=== PATIENT | male | born 1960 | race Caucasian/White ===

== ENCOUNTER 2019-07-26 14:07 | Inpatient (IN) ==
[2019-07-26] MEDS ORDERED: FUROSEMIDE 40 MG/4 ML VIAL IV STA (15:20)
[2019-07-26 15:29] LABS: Basophils # 0.1 10*3/uL (0.0-0.2); Basophils % 0.6 % (0.0-0.8); Eosinophils # 0.4 10*3/uL (0.0-0.87); Eosinophils % 2.9 % (0.00-10.9); Hematocrit 41.7 VOL% (42.0-52.0); Hemoglobin 13.2 GM/DL (14.0-18.0); Immature Granulocytes % 0.3 %; Immature Granulocytes Absolute 0.04 #; Lymphocytes # 2.2 10*3/uL (1.4-4.0); Lymphocytes % 18.6 % (21.2-54.2); Mean Corpuscular HGB Conc 31.7 GM/DL (32-36); Mean Corpuscular Volume 90.3 FL (87-102); Mean Platelet Volume 11.3 FL (9.6-12.0); Monocytes % 7.3 % (1.7-12.7); Neutrophils % 70.3 % (38.7-73.9); Platelet Count 181 T/CUMM (130-400); Red Blood Count 4.62 MC/CUMM (3.8-5.5); Red Cell Distribution Width 14.5 % (9.3-17.3)
[2019-07-26 15:37] LABS: PT Patient Result 10.6 SECS (9.6-12.2); Partial Thromboplastin Time 26.6 SECS (20.8-36.0)
[2019-07-26 15:52] LABS: Albumin 2.8 G/DL (3.4-5.0); Bilirubin,Total 0.4 MG/DL (0.2-1.0); Calcium 8.6 MG/DL (8.5-10.1); Osmolality,Calculated 302.7 MOS/KG (273-304); Total Protein 5.7 G/DL (6.4-8.3)
[2019-07-26] MEDS ORDERED: ACETAMINOPHEN 325 MG TABLET PO PRN (16:02)
[2019-07-26] MEDS ORDERED: ALBUTEROL 2.5 MG/3 ML NEB RESP TX PRN (16:02)
[2019-07-26] MEDS ORDERED: GLUCAGON 1 MG VIAL IM PRN (16:02)
[2019-07-26] MEDS ORDERED: ONDANSETRON 4 MG/2 ML VIAL IV PRN (16:02)
[2019-07-26] MEDS ORDERED: DEXTROSE 10% 250 ML BAG IV PRN (16:02)
[2019-07-26] MEDS ORDERED: AZITHROMYCIN INJ 500 MG in SODIUM CHLORIDE 0.9% 250 ML IV SCH (16:30)
[2019-07-26 17:24] LABS: Apearance,Urine CLEAR (Clear); Bilirubin,Urine Negative (Negative); Blood, Urine Small mg/dL (Negative); Glucose,Urine (UA) >=500 mg/dL (Negative); Ketones,Urine Negative (Negative); Nitrite,Urine Negative (Negative); Protein,Urine >=500 MG/DL; RBC,Urine 3 /HPF (0-4); Urine Color Straw (Yellow); Urine Specific Gravity 1.009 (1.001-1.035); Urine Urobilinogen < 2.0 EU/DL (0.2-1.0); WBC,Urine <1 /HPF (0-6)
[2019-07-26] MEDS: INSULIN REGULAR 100 UNIT/ML SUBCUT SCH ×2 (17:26→21:14)
[2019-07-26] MEDS ORDERED: cefTRIAXone 1,000 MG in SYRINGE 1 EACH IV SCH (18:00)
[2019-07-26] MEDS: ALBUTEROL/IPRATROPIUM 3 ML NEB RESP TX SCH (19:24)
[2019-07-26] MEDS ORDERED: INFLUENZA VIRUS VACCINE 0.5 ML SYRINGE IM ONE (19:25)
[2019-07-26] MEDS ORDERED: PNEUMOCOCCAL VACCINE (23 VALENT) 0.5 ML VIAL IM ONE (19:28)
[2019-07-26] MEDS ORDERED: MAGNESIUM SULF RIDER 4 GM in PREMIX 1 EACH IV PRN (19:31)
[2019-07-26] MEDS ORDERED: MAGNESIUM SULF RIDER 2 GM in PREMIX 1 EACH IV PRN (19:31)
[2019-07-26] MEDS ORDERED: LEVOFLOXACIN INJ 750 MG in PREMIX 1 EACH IV STA (19:31)
[2019-07-26] MEDS ORDERED: ATORVASTATIN 20 MG TABLET PO SCH (21:00)
[2019-07-26] MEDS ORDERED: ENOXAPARIN 40 MG/0.4 ML SYRINGE SUBCUT SCH (21:00)
[2019-07-26] MEDS ORDERED: OMEGA 3 ACID ETHYL ESTERS 1 GM CAPSULE PO SCH (21:00)
[2019-07-26] MEDS ORDERED: APIXABAN 2.5 MG TABLET PO SCH (21:00)
[2019-07-26] MEDS: DILTIAZEM CD 240 MG CAPSULE PO SCH (21:11)
[2019-07-26] MEDS: LEVOTHYROXINE 50 MCG TABLET PO SCH (21:12)
[2019-07-26] MEDS: tiZANidine 4 MG TABLET PO SCH (21:13)
[2019-07-26] MEDS: BENZONATATE 100 MG CAPSULE PO SCH ×2 (21:13→21:14)
[2019-07-26] MEDS: INSULIN GLARGINE 100 UNIT/ML SUBCUT SCH (21:13)
[2019-07-26] MEDS: INSULIN LISPRO 100 UNIT/ML SUBCUT SCH (21:14)
[2019-07-26] MEDS: CITALOPRAM 20 MG TABLET PO SCH (21:16)
[2019-07-26] MEDS: ALPRAZolam 0.25 MG TABLET PO SCH (21:25)
[2019-07-27] MEDS: ALBUTEROL/IPRATROPIUM 3 ML NEB RESP TX SCH ×4 (00:13→20:00)
[2019-07-27 07:17] LABS: Basophils # 0.1 10*3/uL (0.0-0.2); Basophils % 0.6 % (0.0-0.8); Eosinophils # 0.3 10*3/uL (0.0-0.87); Eosinophils % 3.1 % (0.00-10.9); Hematocrit 40.9 VOL% (42.0-52.0); Immature Granulocytes % 0.3 %; Immature Granulocytes Absolute 0.03 #; Lymphocytes % 21.9 % (21.2-54.2); Mean Corpuscular HGB Conc 31.8 GM/DL (32-36); Mean Corpuscular Volume 90.3 FL (87-102); Mean Platelet Volume 11.2 FL (9.6-12.0); Monocytes % 7.4 % (1.7-12.7); Neutrophils % 66.7 % (38.7-73.9); Platelet Count 162 T/CUMM (130-400); Red Blood Count 4.53 MC/CUMM (3.8-5.5); Red Cell Distribution Width 14.3 % (9.3-17.3); White Blood Count 8.9 T/CUMM (4-12)
[2019-07-27 07:51] LABS: Albumin 2.6 G/DL (3.4-5.0); Bilirubin,Total 0.9 MG/DL (0.2-1.0); Calcium 8.9 MG/DL (8.5-10.1); Osmolality,Calculated 297.8 MOS/KG (273-304); Risk Ratio 5.59; Total Protein 6.1 G/DL (6.4-8.3); VLDL CHOLESTEROL 39.4 MG/DL
[2019-07-27] MEDS: BENZONATATE 100 MG CAPSULE PO SCH ×3 (09:13→20:54)
[2019-07-27] MEDS: INSULIN LISPRO 100 UNIT/ML SUBCUT SCH ×3 (09:14→16:50)
[2019-07-27] MEDS: FUROSEMIDE 40 MG/4 ML VIAL IV SCH ×2 (09:15→16:50)
[2019-07-27] MEDS: INSULIN REGULAR 100 UNIT/ML SUBCUT SCH ×4 (09:15→20:52)
[2019-07-27] MEDS: APIXABAN 2.5 MG TABLET PO SCH ×2 (12:59→20:54)
[2019-07-27] MEDS: ASPIRIN EC 81 MG TABLET PO SCH (12:59)
[2019-07-27] MEDS: cefTRIAXone 2,000 MG in SYRINGE 1 EACH IV SCH (16:49)
[2019-07-27] MEDS: INSULIN GLARGINE 100 UNIT/ML SUBCUT SCH (20:51)
[2019-07-27] MEDS: ALPRAZolam 0.25 MG TABLET PO SCH (20:52)
[2019-07-27] MEDS: OMEGA 3 ACID ETHYL ESTERS 1 GM CAPSULE PO SCH (20:53)
[2019-07-27] MEDS: CITALOPRAM 20 MG TABLET PO SCH (20:53)
[2019-07-27] MEDS: DOXYCYCLINE HYCLATE 100 MG CAPSULE PO SCH (20:53)
[2019-07-27] MEDS: LEVOTHYROXINE 50 MCG TABLET PO SCH (20:53)
[2019-07-27] MEDS: ATORVASTATIN 40 MG TABLET PO SCH (20:54)
[2019-07-27] MEDS: DILTIAZEM CD 240 MG CAPSULE PO SCH (20:54)
[2019-07-27] MEDS: tiZANidine 4 MG TABLET PO SCH (20:56)
[2019-07-28] MEDS: ALBUTEROL/IPRATROPIUM 3 ML NEB RESP TX SCH ×4 (08:37→19:21)
[2019-07-28] MEDS: INSULIN REGULAR 100 UNIT/ML SUBCUT SCH ×4 (09:39→21:15)
[2019-07-28] MEDS: INSULIN LISPRO 100 UNIT/ML SUBCUT SCH ×3 (09:39→16:50)
[2019-07-28] MEDS: DOXYCYCLINE HYCLATE 100 MG CAPSULE PO SCH ×2 (09:40→21:14)
[2019-07-28] MEDS: OMEGA 3 ACID ETHYL ESTERS 1 GM CAPSULE PO SCH ×2 (09:40→21:14)
[2019-07-28] MEDS: APIXABAN 2.5 MG TABLET PO SCH ×2 (09:40→21:13)
[2019-07-28] MEDS: BENZONATATE 100 MG CAPSULE PO SCH ×3 (09:40→21:13)
[2019-07-28] MEDS: FUROSEMIDE 40 MG/4 ML VIAL IV SCH ×2 (09:40→17:16)
[2019-07-28] MEDS: ASPIRIN EC 81 MG TABLET PO SCH (09:40)
[2019-07-28] MEDS: cefTRIAXone 2,000 MG in SYRINGE 1 EACH IV SCH (14:36)
[2019-07-28] MEDS: LEVOTHYROXINE 50 MCG TABLET PO SCH (21:14)
[2019-07-28] MEDS: ATORVASTATIN 40 MG TABLET PO SCH (21:14)
[2019-07-28] MEDS: tiZANidine 4 MG TABLET PO SCH (21:14)
[2019-07-28] MEDS: CITALOPRAM 20 MG TABLET PO SCH (21:15)
[2019-07-28] MEDS: DILTIAZEM CD 240 MG CAPSULE PO SCH (21:15)
[2019-07-28] MEDS: ALPRAZolam 0.25 MG TABLET PO SCH (21:16)
[2019-07-28] MEDS: INSULIN GLARGINE 100 UNIT/ML SUBCUT SCH (21:16)
[2019-07-29] MEDS: ALBUTEROL/IPRATROPIUM 3 ML NEB RESP TX SCH ×2 (00:24→08:06)
[2019-07-29 05:04] LABS: Basophils % 0.4 % (0.0-0.8); Eosinophils # 0.3 10*3/uL (0.0-0.87); Eosinophils % 3.1 % (0.00-10.9); Hematocrit 40.1 VOL% (42.0-52.0); Hemoglobin 12.7 GM/DL (14.0-18.0); Immature Granulocytes % 0.3 %; Immature Granulocytes Absolute 0.03 #; Lymphocytes # 1.9 10*3/uL (1.4-4.0); Lymphocytes % 20.3 % (21.2-54.2); Mean Corpuscular HGB Conc 31.7 GM/DL (32-36); Mean Corpuscular Volume 90.7 FL (87-102); Mean Platelet Volume 11.4 FL (9.6-12.0); Monocytes % 8.4 % (1.7-12.7); Neutrophils % 67.5 % (38.7-73.9); Platelet Count 149 T/CUMM (130-400); Red Blood Count 4.42 MC/CUMM (3.8-5.5); Red Cell Distribution Width 14.5 % (9.3-17.3); White Blood Count 9.4 T/CUMM (4-12)
[2019-07-29 05:33] LABS: Calcium 8.7 MG/DL (8.5-10.1); Osmolality,Calculated 293.4 MOS/KG (273-304)
[2019-07-29] MEDS: INSULIN REGULAR 100 UNIT/ML SUBCUT SCH ×2 (08:25→13:00)
[2019-07-29] MEDS: INSULIN LISPRO 100 UNIT/ML SUBCUT SCH ×2 (08:26→13:00)
[2019-07-29] MEDS: FUROSEMIDE 40 MG/4 ML VIAL IV SCH (09:33)
[2019-07-29] MEDS: ASPIRIN EC 81 MG TABLET PO SCH (09:34)
[2019-07-29] MEDS: BENZONATATE 100 MG CAPSULE PO SCH ×2 (09:34→15:20)
[2019-07-29] MEDS: DOXYCYCLINE HYCLATE 100 MG CAPSULE PO SCH (09:34)
[2019-07-29] MEDS: OMEGA 3 ACID ETHYL ESTERS 1 GM CAPSULE PO SCH (09:34)
[2019-07-29] MEDS: APIXABAN 2.5 MG TABLET PO SCH (10:00)
[2019-07-29 14:05] VITALS: BP 121/59
[2019-07-29] MEDS ORDERED: CEFUROXIME 500 MG TABLET PO SCH (21:00)
== END 2019-07-29 15:22 | disposition home or self-care (01) | DRG 291 ==
LOC: N.ED 14:07 → N.EDINP 16:02 → SUATTDRO 16:02 → N.5E 17:36
PROVIDERS: ADMIT Internal Medicine; ATTEND Hospitalist

== ENCOUNTER 2019-10-30 16:38 | Inpatient (IN) ==
[2019-10-30] MEDS ORDERED: ALBUTEROL/IPRATROPIUM 3 ML NEB RESP TX STA (17:48)
[2019-10-30 18:06] LABS: Basophils % 0.4 % (0.0-0.8); Eosinophils # 0.3 10*3/uL (0.0-0.87); Eosinophils % 3.9 % (0.00-10.9); Hematocrit 33.9 VOL% (42.0-52.0); Immature Granulocytes % 0.1 %; Immature Granulocytes Absolute 0.01 #; Lymphocytes # 1.6 10*3/uL (1.4-4.0); Lymphocytes % 22.1 % (21.2-54.2); Mean Corpuscular HGB Conc 29.5 GM/DL (32-36); Mean Corpuscular Volume 90.9 FL (87-102); Mean Platelet Volume 11.3 FL (9.6-12.0); Monocytes % 8.4 % (1.7-12.7); Neutrophils % 65.1 % (38.7-73.9); Platelet Count 180 T/CUMM (130-400); Red Blood Count 3.73 MC/CUMM (3.8-5.5); White Blood Count 7.1 T/CUMM (4-12)
[2019-10-30 18:11] LABS: Calcium 8.5 MG/DL (8.5-10.1); Osmolality,Calculated 294.1 MOS/KG (273-304)
[2019-10-30 18:14] LABS: INR 1.1; PT Patient Result 11.4 SECS (9.6-12.2)
[2019-10-30] MEDS ORDERED: ALBUTEROL NEB SOLN 5 MG/ML 20 ML/BOTTLE CONT NEB STA (18:43)
[2019-10-30] MEDS ORDERED: FUROSEMIDE 40 MG/4 ML VIAL IV STA (18:43)
[2019-10-30] MEDS ORDERED: methylPREDNISolone SOD SUC 125 MG/2 ML VIAL IV STA (18:43)
[2019-10-30 19:06] LABS: Apearance,Urine CLEAR (Clear); Bilirubin,Urine Negative (Negative); Blood, Urine Negative (Negative); Glucose,Urine (UA) 50 mg/dL (Negative); Ketones,Urine Negative (Negative); Mucus,Urine Occasional /LPF (Occasional); Nitrite,Urine Negative (Negative); Protein,Urine 100 MG/DL; RBC,Urine 2 /HPF (0-4); Urine Color Yellow (Yellow); Urine Specific Gravity 1.012 (1.001-1.035); Urine Urobilinogen < 2.0 EU/DL (0.2-1.0)
[2019-10-30] MEDS ORDERED: hydrALAZINE 20 MG/1 ML VIAL IV PRN (21:16)
[2019-10-30] MEDS ORDERED: LOSARTAN 50 MG TABLET PO SCH (21:16)
[2019-10-30] MEDS ORDERED: ACETAMINOPHEN 325 MG TABLET PO PRN (21:16)
[2019-10-30] MEDS ORDERED: ALBUTEROL 2.5 MG/3 ML NEB RESP TX PRN (21:16)
[2019-10-30] MEDS ORDERED: DEXTROSE 50% 25 GM/50 ML SYRINGE IV PRN (21:16)
[2019-10-30] MEDS ORDERED: GLUCAGON 1 MG VIAL IM PRN (21:16)
[2019-10-30] MEDS ORDERED: POTASSIUM CHLORIDE 20 MEQ TABLET PO PRN (21:16)
[2019-10-30] MEDS ORDERED: NITROGLYCERIN SL 0.4 MG TABLET SL PRN (21:16)
[2019-10-30] MEDS: tiZANidine 4 MG TABLET PO SCH (22:12)
[2019-10-30] MEDS: ENOXAPARIN 40 MG/0.4 ML SYRINGE SUBCUT SCH (22:13)
[2019-10-30] MEDS: INSULIN LISPRO 100 UNIT/ML SUBCUT SCH ×2 (22:15→22:16)
[2019-10-30] MEDS: LEVOFLOXACIN INJ 750 MG in PREMIX 1 EACH IV SCH (22:16)
[2019-10-30] MEDS: INSULIN GLARGINE 100 UNIT/ML SUBCUT SCH (22:16)
[2019-10-30] MEDS: VANCOMYCIN INJ 2,000 MG in SODIUM CHLORIDE 0.9% 500 ML IV SCH (22:25)
[2019-10-31] MEDS: ALBUTEROL/IPRATROPIUM 3 ML NEB RESP TX SCH ×4 (01:00→19:29)
[2019-10-31] MEDS: PIPERACILLIN/TAZOBACTAM 3,375 MG in SODIUM CHLORIDE 0.9% 100 ML IV SCH ×3 (02:02→17:53)
[2019-10-31 02:21] LABS: ABG Base Excess -2.7 MMOL/L (-2.5-2.5); ABG HCO3 22.2 MMOL/L (20-26); ABG Oxygen Saturation 96.3 % (95-100); ABG PCO2 52.3 MM HG (35-48); ABG PO2 86.6 MM HG (80-95); ABG TCO2 22.6 MMOL/L (23-27); Allen Test Positive
[2019-10-31] MEDS: LEVOTHYROXINE 50 MCG TABLET PO SCH (06:16)
[2019-10-31 06:52] LABS: Calcium 8.6 MG/DL (8.5-10.1); Osmolality,Calculated 294.7 MOS/KG (273-304); Thyroid Stimulating Hormone 3.33 uIU/ml (0.358-3.74)
[2019-10-31 07:10] LABS: Basophils % 0.1 % (0.0-0.8); Eosinophils % 0.1 % (0.00-10.9); Hematocrit 33.5 VOL% (42.0-52.0); Hemoglobin 9.9 GM/DL (14.0-18.0); Immature Granulocytes % 0.3 %; Immature Granulocytes Absolute 0.02 #; Lymphocytes # 0.3 10*3/uL (1.4-4.0); Mean Corpuscular HGB Conc 29.6 GM/DL (32-36); Mean Platelet Volume 12.1 FL (9.6-12.0); Monocytes % 0.5 % (1.7-12.7); Platelet Count 174 T/CUMM (130-400); Red Blood Count 3.64 MC/CUMM (3.8-5.5); White Blood Count 7.7 T/CUMM (4-12)
[2019-10-31 07:22] LABS: Hypochromasia 1+; Lymphocytes 2 % (20-55); Ovalocytes Slight; Platelet Estimate Adequate; Segmented Neutrophils 98 % (50-85); Total Cells Counted 100
[2019-10-31] MEDS ORDERED: DILTIAZEM CD 240 MG CAPSULE PO SCH (09:00)
[2019-10-31] MEDS ORDERED: ATORVASTATIN 40 MG TABLET PO SCH (09:00)
[2019-10-31] MEDS: INSULIN LISPRO 100 UNIT/ML SUBCUT SCH ×8 (09:15→21:36)
[2019-10-31] MEDS: FUROSEMIDE 40 MG/4 ML VIAL IV SCH ×2 (09:16→17:52)
[2019-10-31] MEDS: ASPIRIN EC 81 MG TABLET PO SCH (09:17)
[2019-10-31] MEDS: CITALOPRAM 20 MG TABLET PO SCH (09:17)
[2019-10-31] MEDS: hydrALAZINE 25 MG TABLET PO SCH ×3 (09:17→17:51)
[2019-10-31] MEDS: GABAPENTIN 300 MG CAPSULE PO SCH ×3 (09:17→17:51)
[2019-10-31] MEDS: VANCOMYCIN INJ 2,000 MG in SODIUM CHLORIDE 0.9% 500 ML IV SCH (09:22)
[2019-10-31] MEDS: ISOSORBIDE DINITRATE 20 MG TABLET PO SCH ×2 (17:52→21:36)
[2019-10-31] MEDS: INSULIN GLARGINE 100 UNIT/ML SUBCUT SCH (21:34)
[2019-10-31] MEDS: LEVOFLOXACIN INJ 750 MG in PREMIX 1 EACH IV SCH (21:36)
[2019-10-31] MEDS: tiZANidine 4 MG TABLET PO SCH (21:36)
[2019-11-01] MEDS: ALBUTEROL/IPRATROPIUM 3 ML NEB RESP TX SCH ×4 (00:29→20:14)
[2019-11-01] MEDS: PIPERACILLIN/TAZOBACTAM 3,375 MG in SODIUM CHLORIDE 0.9% 100 ML IV SCH (02:58)
[2019-11-01] MEDS: LEVOTHYROXINE 50 MCG TABLET PO SCH (05:40)
[2019-11-01 07:25] LABS: Basophils % 0.2 % (0.0-0.8); Hematocrit 31.6 VOL% (42.0-52.0); Hemoglobin 9.3 GM/DL (14.0-18.0); Immature Granulocytes % 0.4 %; Immature Granulocytes Absolute 0.04 #; Lymphocytes # 1.1 10*3/uL (1.4-4.0); Lymphocytes % 9.8 % (21.2-54.2); Mean Corpuscular HGB Conc 29.4 GM/DL (32-36); Mean Corpuscular Volume 91.1 FL (87-102); Mean Platelet Volume 11.5 FL (9.6-12.0); Monocytes % 8.8 % (1.7-12.7); Neutrophils % 80.8 % (38.7-73.9); Platelet Count 201 T/CUMM (130-400); Red Blood Count 3.47 MC/CUMM (3.8-5.5); Red Cell Distribution Width 16.2 % (9.3-17.3); White Blood Count 10.8 T/CUMM (4-12)
[2019-11-01 07:29] LABS: Calcium 8.3 MG/DL (8.5-10.1); Osmolality,Calculated 298.4 MOS/KG (273-304)
[2019-11-01] MEDS: INSULIN LISPRO 100 UNIT/ML SUBCUT SCH ×8 (08:00→22:12)
[2019-11-01] MEDS: hydrALAZINE 25 MG TABLET PO SCH ×3 (09:00→16:44)
[2019-11-01] MEDS ORDERED: DILTIAZEM CD 120 MG CAPSULE PO SCH (09:00)
[2019-11-01] MEDS: GABAPENTIN 300 MG CAPSULE PO SCH ×3 (09:00→16:44)
[2019-11-01] MEDS: ISOSORBIDE DINITRATE 20 MG TABLET PO SCH ×3 (09:00→22:05)
[2019-11-01] MEDS: ASPIRIN EC 81 MG TABLET PO SCH (09:00)
[2019-11-01] MEDS: FUROSEMIDE 40 MG/4 ML VIAL IV SCH (09:44)
[2019-11-01] MEDS ORDERED: LIDOCAINE 1% 20 ML VIAL ONE (11:16)
[2019-11-01] MEDS ORDERED: BUPIVACAINE MPF 0.25% 30 ML VIAL ONE (11:23)
[2019-11-01] MEDS ORDERED: COLLAGENASE OINT 30 GM TUBE TOP ONE (12:17)
[2019-11-01] MEDS: CITALOPRAM 20 MG TABLET PO SCH (14:21)
[2019-11-01] MEDS: VANCOMYCIN INJ 1,750 MG in SODIUM CHLORIDE 0.9% 500 ML IV SCH (14:24)
[2019-11-01] MEDS: MORPHINE 4 MG/1 ML VIAL IV PRN (16:44)
[2019-11-01] MEDS: LEVOFLOXACIN INJ 750 MG in PREMIX 1 EACH IV SCH (22:04)
[2019-11-01] MEDS: ATORVASTATIN 40 MG TABLET PO SCH (22:04)
[2019-11-01] MEDS: carvediloL 3.125 MG TABLET PO SCH (22:05)
[2019-11-01] MEDS: tiZANidine 4 MG TABLET PO SCH (22:05)
[2019-11-01] MEDS: INSULIN GLARGINE 100 UNIT/ML SUBCUT SCH (22:11)
[2019-11-02] MEDS: ALBUTEROL/IPRATROPIUM 3 ML NEB RESP TX SCH ×4 (02:33→19:15)
[2019-11-02 05:42] LABS: Calcium 8.3 MG/DL (8.5-10.1)
[2019-11-02 06:25] LABS: Basophils % 0.5 % (0.0-0.8); Eosinophils # 0.3 10*3/uL (0.0-0.87); Eosinophils % 3.2 % (0.00-10.9); Hematocrit 32.2 VOL% (42.0-52.0); Hemoglobin 9.4 GM/DL (14.0-18.0); Immature Granulocytes % 0.3 %; Immature Granulocytes Absolute 0.02 #; Lymphocytes # 1.7 10*3/uL (1.4-4.0); Lymphocytes % 21.6 % (21.2-54.2); Mean Corpuscular HGB Conc 29.2 GM/DL (32-36); Mean Corpuscular Volume 93.1 FL (87-102); Mean Platelet Volume 11.4 FL (9.6-12.0); Monocytes % 9.1 % (1.7-12.7); Neutrophils % 65.3 % (38.7-73.9); Platelet Count 171 T/CUMM (130-400); Red Blood Count 3.46 MC/CUMM (3.8-5.5); Red Cell Distribution Width 16.5 % (9.3-17.3); White Blood Count 7.9 T/CUMM (4-12)
[2019-11-02 06:31] LABS: Platelet Estimate Normal
[2019-11-02 06:32] LABS: Anisocytosis 1+
[2019-11-02] MEDS: LEVOTHYROXINE 50 MCG TABLET PO SCH (06:41)
[2019-11-02] MEDS: INSULIN LISPRO 100 UNIT/ML SUBCUT SCH ×8 (07:30→21:53)
[2019-11-02] MEDS: carvediloL 3.125 MG TABLET PO SCH ×2 (08:38→21:52)
[2019-11-02] MEDS: CITALOPRAM 20 MG TABLET PO SCH (08:38)
[2019-11-02] MEDS: hydrALAZINE 25 MG TABLET PO SCH ×3 (08:38→17:00)
[2019-11-02] MEDS: ASPIRIN EC 81 MG TABLET PO SCH (08:38)
[2019-11-02] MEDS: GABAPENTIN 300 MG CAPSULE PO SCH ×3 (08:38→17:00)
[2019-11-02] MEDS: ISOSORBIDE DINITRATE 20 MG TABLET PO SCH ×3 (08:38→21:54)
[2019-11-02] MEDS: MORPHINE 4 MG/1 ML VIAL IV PRN ×2 (09:14→21:58)
[2019-11-02] MEDS: COLLAGENASE OINT 30 GM TUBE TOP SCH (15:30)
[2019-11-02] MEDS: SODIUM HYPOCHLORITE 0.25% IRRIG 473 ML BOTTLE TOP SCH (15:30)
[2019-11-02] MEDS: VANCOMYCIN INJ 1,750 MG in SODIUM CHLORIDE 0.9% 500 ML IV SCH (16:59)
[2019-11-02] MEDS: INSULIN GLARGINE 100 UNIT/ML SUBCUT SCH (21:53)
[2019-11-02] MEDS: tiZANidine 4 MG TABLET PO SCH (21:54)
[2019-11-02] MEDS: ATORVASTATIN 40 MG TABLET PO SCH (21:54)
[2019-11-02] MEDS: LEVOFLOXACIN INJ 750 MG in PREMIX 1 EACH IV SCH (21:55)
[2019-11-03] MEDS: ALBUTEROL/IPRATROPIUM 3 ML NEB RESP TX SCH ×4 (00:12→20:29)
[2019-11-03 05:26] LABS: Basophils % 0.4 % (0.0-0.8); Eosinophils # 0.4 10*3/uL (0.0-0.87); Eosinophils % 5.8 % (0.00-10.9); Hematocrit 32.2 VOL% (42.0-52.0); Immature Granulocytes % 0.1 %; Immature Granulocytes Absolute 0.01 #; Lymphocytes # 1.8 10*3/uL (1.4-4.0); Lymphocytes % 24.3 % (21.2-54.2); Mean Corpuscular HGB Conc 28.9 GM/DL (32-36); Mean Corpuscular Volume 92.8 FL (87-102); Mean Platelet Volume 11.6 FL (9.6-12.0); Monocytes % 10.6 % (1.7-12.7); Neutrophils % 58.8 % (38.7-73.9); Platelet Count 169 T/CUMM (130-400); Red Blood Count 3.47 MC/CUMM (3.8-5.5); Red Cell Distribution Width 16.3 % (9.3-17.3); White Blood Count 7.5 T/CUMM (4-12)
[2019-11-03] MEDS: LEVOTHYROXINE 50 MCG TABLET PO SCH (05:46)
[2019-11-03 05:53] LABS: Hemoglobin 9.4 GM/DL (14.0-18.0)
[2019-11-03 05:55] LABS: Calcium 8.4 MG/DL (8.5-10.1); Osmolality,Calculated 301.8 MOS/KG (273-304)
[2019-11-03 07:53] LABS: Anisocytosis 1+; Hypochromasia 2+; Platelet Estimate Adequate; Polychromasia Slight
[2019-11-03] MEDS: INSULIN LISPRO 100 UNIT/ML SUBCUT SCH ×8 (08:01→21:33)
[2019-11-03] MEDS: CITALOPRAM 20 MG TABLET PO SCH (08:56)
[2019-11-03] MEDS: ISOSORBIDE DINITRATE 20 MG TABLET PO SCH ×3 (08:56→21:27)
[2019-11-03] MEDS: SODIUM HYPOCHLORITE 0.25% IRRIG 473 ML BOTTLE TOP SCH (08:56)
[2019-11-03] MEDS: hydrALAZINE 25 MG TABLET PO SCH ×3 (08:56→17:26)
[2019-11-03] MEDS: ASPIRIN EC 81 MG TABLET PO SCH (08:56)
[2019-11-03] MEDS: carvediloL 3.125 MG TABLET PO SCH ×2 (08:56→21:27)
[2019-11-03] MEDS: COLLAGENASE OINT 30 GM TUBE TOP SCH (08:57)
[2019-11-03] MEDS: GABAPENTIN 300 MG CAPSULE PO SCH ×3 (09:00→17:26)
[2019-11-03] MEDS: VANCOMYCIN INJ 1,750 MG in SODIUM CHLORIDE 0.9% 500 ML IV SCH (14:00)
[2019-11-03] MEDS: MORPHINE 4 MG/1 ML VIAL IV PRN (17:25)
[2019-11-03] MEDS: ATORVASTATIN 40 MG TABLET PO SCH (21:27)
[2019-11-03] MEDS: tiZANidine 4 MG TABLET PO SCH (21:27)
[2019-11-03] MEDS: INSULIN GLARGINE 100 UNIT/ML SUBCUT SCH (21:27)
[2019-11-03] MEDS: LEVOFLOXACIN INJ 750 MG in PREMIX 1 EACH IV SCH (21:28)
[2019-11-04] MEDS: ALBUTEROL/IPRATROPIUM 3 ML NEB RESP TX SCH ×4 (00:27→20:27)
[2019-11-04] MEDS: LEVOTHYROXINE 50 MCG TABLET PO SCH (06:20)
[2019-11-04] MEDS: INSULIN LISPRO 100 UNIT/ML SUBCUT SCH ×8 (08:08→22:33)
[2019-11-04] MEDS ORDERED: hydrALAZINE 10 MG TABLET ONE (08:52)
[2019-11-04] MEDS: GABAPENTIN 300 MG CAPSULE PO SCH ×3 (09:18→17:36)
[2019-11-04] MEDS: ISOSORBIDE DINITRATE 20 MG TABLET PO SCH ×3 (09:18→22:33)
[2019-11-04] MEDS: COLLAGENASE OINT 30 GM TUBE TOP SCH (09:18)
[2019-11-04] MEDS: hydrALAZINE 25 MG TABLET PO SCH ×3 (09:18→17:36)
[2019-11-04] MEDS: ASPIRIN EC 81 MG TABLET PO SCH (09:18)
[2019-11-04] MEDS: carvediloL 3.125 MG TABLET PO SCH ×2 (09:18→22:33)
[2019-11-04] MEDS: SODIUM HYPOCHLORITE 0.25% IRRIG 473 ML BOTTLE TOP SCH (09:18)
[2019-11-04] MEDS: CITALOPRAM 20 MG TABLET PO SCH (09:18)
[2019-11-04] MEDS: VANCOMYCIN INJ 1,750 MG in SODIUM CHLORIDE 0.9% 500 ML IV SCH ×2 (15:13→16:10)
[2019-11-04] MEDS: INSULIN GLARGINE 100 UNIT/ML SUBCUT SCH (22:33)
[2019-11-04] MEDS: ATORVASTATIN 40 MG TABLET PO SCH (22:33)
[2019-11-04] MEDS: tiZANidine 4 MG TABLET PO SCH (22:33)
[2019-11-04] MEDS: LEVOFLOXACIN INJ 750 MG in PREMIX 1 EACH IV SCH (22:34)
[2019-11-05] MEDS: ALBUTEROL/IPRATROPIUM 3 ML NEB RESP TX SCH ×4 (00:33→18:41)
[2019-11-05] MEDS: SODIUM CHLORIDE 0.9% 1,000 ML IV SCH ×3 (00:55→23:27)
[2019-11-05] MEDS ORDERED: VANCOMYCIN INJ 1,750 MG in SODIUM CHLORIDE 0.9% 500 ML IV SCH (02:00)
[2019-11-05 04:27] LABS: Basophils % 0.2 % (0.0-0.8); Eosinophils # 0.3 10*3/uL (0.0-0.87); Eosinophils % 4.7 % (0.00-10.9); Hematocrit 31.7 VOL% (42.0-52.0); Hemoglobin 9.3 GM/DL (14.0-18.0); Immature Granulocytes % 0.2 %; Immature Granulocytes Absolute 0.01 #; Lymphocytes # 1.7 10*3/uL (1.4-4.0); Lymphocytes % 29.3 % (21.2-54.2); Mean Corpuscular HGB Conc 29.3 GM/DL (32-36); Mean Corpuscular Volume 90.8 FL (87-102); Mean Platelet Volume 11.4 FL (9.6-12.0); Monocytes % 10.6 % (1.7-12.7); Platelet Count 133 T/CUMM (130-400); Red Blood Count 3.49 MC/CUMM (3.8-5.5); Red Cell Distribution Width 16.2 % (9.3-17.3); White Blood Count 5.9 T/CUMM (4-12)
[2019-11-05 04:38] LABS: Calcium 8.4 MG/DL (8.5-10.1); Osmolality,Calculated 297.1 MOS/KG (273-304)
[2019-11-05] MEDS: LEVOTHYROXINE 50 MCG TABLET PO SCH (05:44)
[2019-11-05] MEDS: INSULIN LISPRO 100 UNIT/ML SUBCUT SCH ×8 (08:01→23:28)
[2019-11-05] MEDS: CITALOPRAM 20 MG TABLET PO SCH (08:29)
[2019-11-05] MEDS: GABAPENTIN 300 MG CAPSULE PO SCH ×3 (08:29→17:58)
[2019-11-05] MEDS: ISOSORBIDE DINITRATE 20 MG TABLET PO SCH ×3 (08:30→20:50)
[2019-11-05] MEDS: carvediloL 3.125 MG TABLET PO SCH ×2 (08:30→20:50)
[2019-11-05] MEDS: ASPIRIN EC 81 MG TABLET PO SCH (08:30)
[2019-11-05] MEDS: hydrALAZINE 25 MG TABLET PO SCH ×3 (08:30→17:58)
[2019-11-05] MEDS: SODIUM HYPOCHLORITE 0.25% IRRIG 473 ML BOTTLE TOP SCH (10:10)
[2019-11-05] MEDS: COLLAGENASE OINT 30 GM TUBE TOP SCH (10:10)
[2019-11-05] MEDS ORDERED: FUROSEMIDE 40 MG/4 ML VIAL IV ONE (13:01)
[2019-11-05] MEDS: ATORVASTATIN 40 MG TABLET PO SCH (20:50)
[2019-11-05] MEDS: tiZANidine 4 MG TABLET PO SCH (20:50)
[2019-11-05] MEDS: LEVOFLOXACIN INJ 750 MG in PREMIX 1 EACH IV SCH (20:50)
[2019-11-05] MEDS: INSULIN GLARGINE 100 UNIT/ML SUBCUT SCH (21:01)
[2019-11-06] MEDS: ALBUTEROL/IPRATROPIUM 3 ML NEB RESP TX SCH ×4 (00:40→18:00)
[2019-11-06] MEDS: LEVOTHYROXINE 50 MCG TABLET PO SCH (05:35)
[2019-11-06 06:41] LABS: Basophils % 0.2 % (0.0-0.8); Eosinophils # 0.4 10*3/uL (0.0-0.87); Eosinophils % 6.7 % (0.00-10.9); Hematocrit 32.9 VOL% (42.0-52.0); Hemoglobin 9.7 GM/DL (14.0-18.0); Immature Granulocytes % 0.2 %; Immature Granulocytes Absolute 0.01 #; Lymphocytes # 1.4 10*3/uL (1.4-4.0); Lymphocytes % 22.8 % (21.2-54.2); Mean Corpuscular HGB Conc 29.5 GM/DL (32-36); Mean Corpuscular Volume 90.1 FL (87-102); Mean Platelet Volume 11.5 FL (9.6-12.0); Monocytes % 9.4 % (1.7-12.7); Neutrophils % 60.7 % (38.7-73.9); Platelet Count 147 T/CUMM (130-400); Red Blood Count 3.65 MC/CUMM (3.8-5.5); Red Cell Distribution Width 16.2 % (9.3-17.3); White Blood Count 5.9 T/CUMM (4-12)
[2019-11-06 07:08] LABS: Albumin 2.4 G/DL (3.4-5.0); Bilirubin,Total 0.4 MG/DL (0.2-1.0); Calcium 8.5 MG/DL (8.5-10.1); Total Protein 6.6 G/DL (6.4-8.3)
[2019-11-06] MEDS: SODIUM CHLORIDE 0.9% 1,000 ML IV SCH (07:13)
[2019-11-06] MEDS ORDERED: FUROSEMIDE 40 MG/4 ML VIAL IV SCH (08:00)
[2019-11-06] MEDS: INSULIN LISPRO 100 UNIT/ML SUBCUT SCH ×5 (08:21→21:36)
[2019-11-06] MEDS: ASPIRIN EC 81 MG TABLET PO SCH (08:45)
[2019-11-06] MEDS: carvediloL 3.125 MG TABLET PO SCH ×2 (08:45→21:35)
[2019-11-06] MEDS: ISOSORBIDE DINITRATE 20 MG TABLET PO SCH ×3 (08:45→21:35)
[2019-11-06] MEDS: CITALOPRAM 20 MG TABLET PO SCH (08:45)
[2019-11-06] MEDS: hydrALAZINE 25 MG TABLET PO SCH ×3 (08:45→17:38)
[2019-11-06] MEDS: GABAPENTIN 300 MG CAPSULE PO SCH ×3 (08:45→17:38)
[2019-11-06] MEDS: SPIRONOLACTONE 25 MG TABLET PO SCH (09:41)
[2019-11-06] MEDS: SODIUM HYPOCHLORITE 0.25% IRRIG 473 ML BOTTLE TOP SCH (10:15)
[2019-11-06] MEDS: COLLAGENASE OINT 30 GM TUBE TOP SCH (10:15)
[2019-11-06] MEDS: INSULIN GLARGINE 100 UNIT/ML SUBCUT SCH (21:34)
[2019-11-06] MEDS: ATORVASTATIN 40 MG TABLET PO SCH (21:35)
[2019-11-06] MEDS: tiZANidine 4 MG TABLET PO SCH (21:35)
[2019-11-07] MEDS: ALBUTEROL/IPRATROPIUM 3 ML NEB RESP TX SCH ×4 (00:26→18:56)
[2019-11-07] MEDS: LEVOFLOXACIN INJ 750 MG in PREMIX 1 EACH IV SCH ×2 (00:32→21:17)
[2019-11-07 05:21] LABS: Basophils % 0.3 % (0.0-0.8); Eosinophils # 0.3 10*3/uL (0.0-0.87); Immature Granulocytes % 0.3 %; Immature Granulocytes Absolute 0.02 #; Lymphocytes # 1.5 10*3/uL (1.4-4.0); Lymphocytes % 23.8 % (21.2-54.2); Mean Corpuscular HGB Conc 28.9 GM/DL (32-36); Mean Corpuscular Volume 91.7 FL (87-102); Mean Platelet Volume 11.8 FL (9.6-12.0); Monocytes % 9.4 % (1.7-12.7); Neutrophils % 61.2 % (38.7-73.9); Platelet Count 140 T/CUMM (130-400); Red Blood Count 3.62 MC/CUMM (3.8-5.5); White Blood Count 6.3 T/CUMM (4-12)
[2019-11-07] MEDS: LEVOTHYROXINE 50 MCG TABLET PO SCH (05:31)
[2019-11-07 05:50] LABS: Hemoglobin 9.6 GM/DL (14.0-18.0)
[2019-11-07 05:52] LABS: Anisocytosis 1+; Hypochromasia 1+; Microcytosis 1+; Ovalocytes Slight; Platelet Estimate Adequate
[2019-11-07 05:55] LABS: Albumin 2.3 G/DL (3.4-5.0); Bilirubin,Total 1.2 MG/DL (0.2-1.0); Calcium 8.7 MG/DL (8.5-10.1); Total Protein 6.5 G/DL (6.4-8.3)
[2019-11-07] MEDS: INSULIN LISPRO 100 UNIT/ML SUBCUT SCH ×4 (08:21→21:14)
[2019-11-07] MEDS: FUROSEMIDE 40 MG/4 ML VIAL IV SCH (08:45)
[2019-11-07] MEDS: GABAPENTIN 300 MG CAPSULE PO SCH ×3 (08:48→17:00)
[2019-11-07] MEDS: COLLAGENASE OINT 30 GM TUBE TOP SCH (08:48)
[2019-11-07] MEDS: SODIUM HYPOCHLORITE 0.25% IRRIG 473 ML BOTTLE TOP SCH (08:48)
[2019-11-07] MEDS: SPIRONOLACTONE 25 MG TABLET PO SCH (08:48)
[2019-11-07] MEDS: ASPIRIN EC 81 MG TABLET PO SCH (08:48)
[2019-11-07] MEDS: CITALOPRAM 20 MG TABLET PO SCH (08:48)
[2019-11-07] MEDS: ISOSORBIDE DINITRATE 20 MG TABLET PO SCH ×3 (08:48→21:15)
[2019-11-07] MEDS: hydrALAZINE 25 MG TABLET PO SCH ×3 (08:48→17:00)
[2019-11-07] MEDS: carvediloL 3.125 MG TABLET PO SCH ×2 (08:48→21:15)
[2019-11-07] MEDS: INSULIN GLARGINE 100 UNIT/ML SUBCUT SCH (21:14)
[2019-11-07] MEDS: ATORVASTATIN 40 MG TABLET PO SCH (21:15)
[2019-11-07] MEDS: tiZANidine 4 MG TABLET PO SCH (21:16)
[2019-11-08] MEDS: ALBUTEROL/IPRATROPIUM 3 ML NEB RESP TX SCH ×4 (00:07→20:00)
[2019-11-08] MEDS: LEVOTHYROXINE 50 MCG TABLET PO SCH (05:27)
[2019-11-08] MEDS: FUROSEMIDE 40 MG/4 ML VIAL IV SCH ×2 (08:50→16:15)
[2019-11-08] MEDS: SPIRONOLACTONE 25 MG TABLET PO SCH (08:52)
[2019-11-08] MEDS: INSULIN LISPRO 100 UNIT/ML SUBCUT SCH ×4 (08:52→21:02)
[2019-11-08] MEDS: ISOSORBIDE DINITRATE 20 MG TABLET PO SCH ×3 (08:53→20:22)
[2019-11-08] MEDS: GABAPENTIN 300 MG CAPSULE PO SCH ×3 (08:53→16:16)
[2019-11-08] MEDS: ASPIRIN EC 81 MG TABLET PO SCH (08:53)
[2019-11-08] MEDS: hydrALAZINE 25 MG TABLET PO SCH ×3 (08:53→16:16)
[2019-11-08] MEDS: carvediloL 3.125 MG TABLET PO SCH ×2 (08:53→20:22)
[2019-11-08] MEDS: CITALOPRAM 20 MG TABLET PO SCH (08:53)
[2019-11-08] MEDS: SODIUM HYPOCHLORITE 0.25% IRRIG 473 ML BOTTLE TOP SCH (11:48)
[2019-11-08] MEDS: COLLAGENASE OINT 30 GM TUBE TOP SCH (11:48)
[2019-11-08] MEDS ORDERED: TUBERCULIN SKIN TEST 0.1 ML SYRINGE INTRADERM ONE (15:12)
[2019-11-08] MEDS: metOLazone 5 MG TABLET PO SCH (16:15)
[2019-11-08] MEDS: LEVOFLOXACIN 750 MG TABLET PO SCH (16:16)
[2019-11-08] MEDS: tiZANidine 4 MG TABLET PO SCH (20:22)
[2019-11-08] MEDS: ATORVASTATIN 40 MG TABLET PO SCH (20:22)
[2019-11-08] MEDS: INSULIN GLARGINE 100 UNIT/ML SUBCUT SCH (20:55)
[2019-11-09] MEDS: ALBUTEROL/IPRATROPIUM 3 ML NEB RESP TX SCH ×4 (01:03→20:35)
[2019-11-09] MEDS: LEVOTHYROXINE 50 MCG TABLET PO SCH (05:43)
[2019-11-09 06:17] LABS: Basophils % 0.2 % (0.0-0.8); Immature Granulocytes % 0.4 %; Immature Granulocytes Absolute 0.02 #
[2019-11-09 06:41] LABS: Albumin 2.4 G/DL (3.4-5.0); Bilirubin,Total 0.7 MG/DL (0.2-1.0); Calcium 8.6 MG/DL (8.5-10.1); Total Protein 6.8 G/DL (6.4-8.3)
[2019-11-09 06:47] LABS: Eosinophils # 0.3 10*3/uL (0.0-0.87); Eosinophils % 5.3 % (0.00-10.9); Hematocrit 33.3 VOL% (42.0-52.0); Lymphocytes # 1.4 10*3/uL (1.4-4.0); Lymphocytes % 24.1 % (21.2-54.2); Mean Corpuscular HGB Conc 29.4 GM/DL (32-36); Mean Corpuscular Volume 91.7 FL (87-102); Mean Platelet Volume 11.5 FL (9.6-12.0); Monocytes % 10.5 % (1.7-12.7); Neutrophils % 59.5 % (38.7-73.9); Platelet Count 126 T/CUMM (130-400); Red Blood Count 3.63 MC/CUMM (3.8-5.5); White Blood Count 5.6 T/CUMM (4-12)
[2019-11-09 06:51] LABS: Hemoglobin 9.8 GM/DL (14.0-18.0)
[2019-11-09] MEDS: SODIUM HYPOCHLORITE 0.25% IRRIG 473 ML BOTTLE TOP SCH (09:02)
[2019-11-09] MEDS: metOLazone 5 MG TABLET PO SCH (09:02)
[2019-11-09] MEDS: CITALOPRAM 20 MG TABLET PO SCH (09:03)
[2019-11-09] MEDS: ISOSORBIDE DINITRATE 20 MG TABLET PO SCH ×3 (09:03→21:55)
[2019-11-09] MEDS: carvediloL 3.125 MG TABLET PO SCH ×2 (09:03→21:55)
[2019-11-09] MEDS: GABAPENTIN 300 MG CAPSULE PO SCH ×3 (09:03→17:05)
[2019-11-09] MEDS: hydrALAZINE 25 MG TABLET PO SCH ×3 (09:03→17:05)
[2019-11-09] MEDS: ASPIRIN EC 81 MG TABLET PO SCH (09:03)
[2019-11-09] MEDS: INSULIN LISPRO 100 UNIT/ML SUBCUT SCH ×4 (09:04→21:56)
[2019-11-09] MEDS: FUROSEMIDE 40 MG/4 ML VIAL IV SCH ×2 (09:04→17:06)
[2019-11-09] MEDS: COLLAGENASE OINT 30 GM TUBE TOP SCH (09:05)
[2019-11-09] MEDS: SPIRONOLACTONE 25 MG TABLET PO SCH ×2 (09:09→21:57)
[2019-11-09] MEDS: LEVOFLOXACIN 750 MG TABLET PO SCH (17:05)
[2019-11-09] MEDS: ATORVASTATIN 40 MG TABLET PO SCH (21:55)
[2019-11-09] MEDS: tiZANidine 4 MG TABLET PO SCH (21:55)
[2019-11-09] MEDS: INSULIN GLARGINE 100 UNIT/ML SUBCUT SCH (21:56)
[2019-11-10] MEDS: ALBUTEROL/IPRATROPIUM 3 ML NEB RESP TX SCH ×4 (02:07→19:47)
[2019-11-10 04:37] LABS: Basophils % 0.3 % (0.0-0.8); Eosinophils # 0.2 10*3/uL (0.0-0.87); Eosinophils % 3.6 % (0.00-10.9); Hematocrit 31.5 VOL% (42.0-52.0); Hemoglobin 9.5 GM/DL (14.0-18.0); Immature Granulocytes % 0.3 %; Immature Granulocytes Absolute 0.02 #; Lymphocytes # 1.4 10*3/uL (1.4-4.0); Lymphocytes % 21.3 % (21.2-54.2); Mean Corpuscular HGB Conc 30.2 GM/DL (32-36); Mean Corpuscular Volume 88.7 FL (87-102); Mean Platelet Volume 11.8 FL (9.6-12.0); Monocytes % 11.2 % (1.7-12.7); Neutrophils % 63.3 % (38.7-73.9); Platelet Count 118 T/CUMM (130-400); Red Blood Count 3.55 MC/CUMM (3.8-5.5); Red Cell Distribution Width 16.1 % (9.3-17.3); White Blood Count 6.4 T/CUMM (4-12)
[2019-11-10 05:01] LABS: Albumin 2.3 G/DL (3.4-5.0); Bilirubin,Total 0.6 MG/DL (0.2-1.0); Calcium 8.6 MG/DL (8.5-10.1); Osmolality,Calculated 290.3 MOS/KG (273-304); Total Protein 6.6 G/DL (6.4-8.3)
[2019-11-10] MEDS: LEVOTHYROXINE 50 MCG TABLET PO SCH (05:29)
[2019-11-10] MEDS: INSULIN LISPRO 100 UNIT/ML SUBCUT SCH ×4 (09:16→22:27)
[2019-11-10] MEDS: metOLazone 5 MG TABLET PO SCH (09:30)
[2019-11-10] MEDS: ASPIRIN EC 81 MG TABLET PO SCH (09:30)
[2019-11-10] MEDS: GABAPENTIN 300 MG CAPSULE PO SCH ×3 (09:31→16:34)
[2019-11-10] MEDS: CITALOPRAM 20 MG TABLET PO SCH (09:31)
[2019-11-10] MEDS: SPIRONOLACTONE 25 MG TABLET PO SCH ×2 (09:31→22:28)
[2019-11-10] MEDS: hydrALAZINE 25 MG TABLET PO SCH ×3 (09:31→16:34)
[2019-11-10] MEDS: ISOSORBIDE DINITRATE 20 MG TABLET PO SCH ×3 (09:31→22:29)
[2019-11-10] MEDS: FUROSEMIDE 40 MG/4 ML VIAL IV SCH ×2 (09:32→16:33)
[2019-11-10] MEDS: carvediloL 3.125 MG TABLET PO SCH ×2 (09:42→22:28)
[2019-11-10] MEDS: COLLAGENASE OINT 30 GM TUBE TOP SCH (09:43)
[2019-11-10] MEDS: SODIUM HYPOCHLORITE 0.25% IRRIG 473 ML BOTTLE TOP SCH (09:43)
[2019-11-10] MEDS: LEVOFLOXACIN 750 MG TABLET PO SCH (16:34)
[2019-11-10] MEDS: INSULIN GLARGINE 100 UNIT/ML SUBCUT SCH (22:27)
[2019-11-10] MEDS: tiZANidine 4 MG TABLET PO SCH (22:28)
[2019-11-10] MEDS: ATORVASTATIN 40 MG TABLET PO SCH (22:28)
[2019-11-11] MEDS: ALBUTEROL/IPRATROPIUM 3 ML NEB RESP TX SCH ×4 (00:54→20:50)
[2019-11-11] MEDS: LEVOTHYROXINE 50 MCG TABLET PO SCH (06:11)
[2019-11-11 06:36] LABS: Basophils % 0.3 % (0.0-0.8); Eosinophils # 0.2 10*3/uL (0.0-0.87); Eosinophils % 3.3 % (0.00-10.9); Hematocrit 32.3 VOL% (42.0-52.0); Hemoglobin 9.6 GM/DL (14.0-18.0); Immature Granulocytes % 0.3 %; Immature Granulocytes Absolute 0.02 #; Lymphocytes # 1.5 10*3/uL (1.4-4.0); Lymphocytes % 21.9 % (21.2-54.2); Mean Corpuscular HGB Conc 29.7 GM/DL (32-36); Mean Platelet Volume 11.6 FL (9.6-12.0); Monocytes % 10.1 % (1.7-12.7); Neutrophils % 64.1 % (38.7-73.9); Platelet Count 141 T/CUMM (130-400); Red Blood Count 3.63 MC/CUMM (3.8-5.5); White Blood Count 6.9 T/CUMM (4-12)
[2019-11-11 06:56] LABS: Albumin 2.6 G/DL (3.4-5.0); Bilirubin,Total 0.4 MG/DL (0.2-1.0); Calcium 8.8 MG/DL (8.5-10.1); Osmolality,Calculated 288.5 MOS/KG (273-304); Total Protein 6.8 G/DL (6.4-8.3)
[2019-11-11] MEDS: carvediloL 3.125 MG TABLET PO SCH ×2 (09:15→22:40)
[2019-11-11] MEDS: SPIRONOLACTONE 25 MG TABLET PO SCH ×2 (09:15→22:40)
[2019-11-11] MEDS: metOLazone 5 MG TABLET PO SCH (09:15)
[2019-11-11] MEDS: CITALOPRAM 20 MG TABLET PO SCH (09:16)
[2019-11-11] MEDS: ASPIRIN EC 81 MG TABLET PO SCH (09:16)
[2019-11-11] MEDS: hydrALAZINE 25 MG TABLET PO SCH ×3 (09:16→17:12)
[2019-11-11] MEDS: ISOSORBIDE DINITRATE 20 MG TABLET PO SCH ×3 (09:16→22:40)
[2019-11-11] MEDS: GABAPENTIN 300 MG CAPSULE PO SCH ×3 (09:16→17:11)
[2019-11-11] MEDS: SODIUM HYPOCHLORITE 0.25% IRRIG 473 ML BOTTLE TOP SCH (09:17)
[2019-11-11] MEDS: INSULIN LISPRO 100 UNIT/ML SUBCUT SCH ×4 (09:17→22:41)
[2019-11-11] MEDS: COLLAGENASE OINT 30 GM TUBE TOP SCH (09:18)
[2019-11-11] MEDS: FUROSEMIDE 40 MG/4 ML VIAL IV SCH ×2 (09:18→15:04)
[2019-11-11] MEDS: LEVOFLOXACIN 750 MG TABLET PO SCH (17:12)
[2019-11-11] MEDS: INSULIN GLARGINE 100 UNIT/ML SUBCUT SCH (22:39)
[2019-11-11] MEDS: ATORVASTATIN 40 MG TABLET PO SCH (22:40)
[2019-11-11] MEDS: tiZANidine 4 MG TABLET PO SCH (22:40)
[2019-11-12] MEDS: ALBUTEROL/IPRATROPIUM 3 ML NEB RESP TX SCH ×4 (00:28→19:58)
[2019-11-12] MEDS: LEVOTHYROXINE 50 MCG TABLET PO SCH (05:19)
[2019-11-12 06:23] LABS: Basophils % 0.3 % (0.0-0.8); Eosinophils # 0.2 10*3/uL (0.0-0.87); Eosinophils % 3.3 % (0.00-10.9); Hematocrit 31.4 VOL% (42.0-52.0); Hemoglobin 9.5 GM/DL (14.0-18.0); Immature Granulocytes % 0.2 %; Immature Granulocytes Absolute 0.01 #; Lymphocytes # 1.3 10*3/uL (1.4-4.0); Lymphocytes % 20.6 % (21.2-54.2); Mean Corpuscular HGB Conc 30.3 GM/DL (32-36); Mean Platelet Volume 11.3 FL (9.6-12.0); Monocytes % 10.2 % (1.7-12.7); Neutrophils % 65.4 % (38.7-73.9); Platelet Count 117 T/CUMM (130-400); Red Blood Count 3.53 MC/CUMM (3.8-5.5); Red Cell Distribution Width 16.2 % (9.3-17.3); White Blood Count 6.4 T/CUMM (4-12)
[2019-11-12 06:37] LABS: Albumin 2.5 G/DL (3.4-5.0); Bilirubin,Total 0.4 MG/DL (0.2-1.0); Calcium 8.7 MG/DL (8.5-10.1); Osmolality,Calculated 290.3 MOS/KG (273-304); Total Protein 6.6 G/DL (6.4-8.3)
[2019-11-12] MEDS: GABAPENTIN 300 MG CAPSULE PO SCH ×3 (08:13→16:53)
[2019-11-12] MEDS: SPIRONOLACTONE 25 MG TABLET PO SCH ×2 (08:13→20:39)
[2019-11-12] MEDS: FUROSEMIDE 40 MG/4 ML VIAL IV SCH ×2 (08:13→16:50)
[2019-11-12] MEDS: ASPIRIN EC 81 MG TABLET PO SCH (08:14)
[2019-11-12] MEDS: hydrALAZINE 25 MG TABLET PO SCH ×3 (08:14→16:53)
[2019-11-12] MEDS: ISOSORBIDE DINITRATE 20 MG TABLET PO SCH ×3 (08:14→20:39)
[2019-11-12] MEDS: carvediloL 3.125 MG TABLET PO SCH (08:14)
[2019-11-12] MEDS: CITALOPRAM 20 MG TABLET PO SCH (08:14)
[2019-11-12] MEDS: metOLazone 5 MG TABLET PO SCH (08:14)
[2019-11-12] MEDS: INSULIN LISPRO 100 UNIT/ML SUBCUT SCH ×4 (08:15→20:39)
[2019-11-12] MEDS: COLLAGENASE OINT 30 GM TUBE TOP SCH (08:15)
[2019-11-12] MEDS: SODIUM HYPOCHLORITE 0.25% IRRIG 473 ML BOTTLE TOP SCH (08:15)
[2019-11-12] MEDS ORDERED: carvediloL 3.125 MG TABLET PO ONE (10:12)
[2019-11-12] MEDS: LEVOFLOXACIN 750 MG TABLET PO SCH (16:53)
[2019-11-12] MEDS: carvediloL 6.25 MG TABLET PO SCH (20:38)
[2019-11-12] MEDS: INSULIN GLARGINE 100 UNIT/ML SUBCUT SCH (20:38)
[2019-11-12] MEDS: tiZANidine 4 MG TABLET PO SCH (20:38)
[2019-11-12] MEDS: ATORVASTATIN 40 MG TABLET PO SCH (20:39)
[2019-11-13] MEDS: ALBUTEROL/IPRATROPIUM 3 ML NEB RESP TX SCH ×4 (00:35→20:00)
[2019-11-13] MEDS: LEVOTHYROXINE 50 MCG TABLET PO SCH (05:43)
[2019-11-13 06:56] LABS: Basophils % 0.3 % (0.0-0.8); Eosinophils # 0.3 10*3/uL (0.0-0.87); Eosinophils % 4.2 % (0.00-10.9); Hematocrit 33.2 VOL% (42.0-52.0); Hemoglobin 10.2 GM/DL (14.0-18.0); Immature Granulocytes % 0.1 %; Immature Granulocytes Absolute 0.01 #; Lymphocytes # 1.6 10*3/uL (1.4-4.0); Lymphocytes % 22.1 % (21.2-54.2); Mean Corpuscular HGB Conc 30.7 GM/DL (32-36); Mean Corpuscular Volume 87.4 FL (87-102); Mean Platelet Volume 11.3 FL (9.6-12.0); Monocytes % 9.6 % (1.7-12.7); Neutrophils % 63.7 % (38.7-73.9); Platelet Count 126 T/CUMM (130-400); Red Cell Distribution Width 16.1 % (9.3-17.3); White Blood Count 7.1 T/CUMM (4-12)
[2019-11-13 07:09] LABS: Calcium 9.1 MG/DL (8.5-10.1); Osmolality,Calculated 288.4 MOS/KG (273-304)
[2019-11-13] MEDS: FUROSEMIDE 40 MG/4 ML VIAL IV SCH ×2 (09:09→17:55)
[2019-11-13] MEDS: SPIRONOLACTONE 25 MG TABLET PO SCH ×2 (09:12→20:50)
[2019-11-13] MEDS: INSULIN LISPRO 100 UNIT/ML SUBCUT SCH ×4 (09:12→20:47)
[2019-11-13] MEDS: hydrALAZINE 25 MG TABLET PO SCH ×3 (09:13→17:56)
[2019-11-13] MEDS: COLLAGENASE OINT 30 GM TUBE TOP SCH (09:13)
[2019-11-13] MEDS: GABAPENTIN 300 MG CAPSULE PO SCH ×3 (09:13→17:56)
[2019-11-13] MEDS: CITALOPRAM 20 MG TABLET PO SCH (09:13)
[2019-11-13] MEDS: SODIUM HYPOCHLORITE 0.25% IRRIG 473 ML BOTTLE TOP SCH (09:13)
[2019-11-13] MEDS: carvediloL 6.25 MG TABLET PO SCH ×2 (09:13→20:49)
[2019-11-13] MEDS: ASPIRIN EC 81 MG TABLET PO SCH (09:13)
[2019-11-13] MEDS: metOLazone 5 MG TABLET PO SCH (09:13)
[2019-11-13] MEDS: ISOSORBIDE DINITRATE 20 MG TABLET PO SCH ×3 (09:13→20:50)
[2019-11-13] MEDS: LEVOFLOXACIN 750 MG TABLET PO SCH (17:55)
[2019-11-13] MEDS: INSULIN GLARGINE 100 UNIT/ML SUBCUT SCH (20:48)
[2019-11-13] MEDS: tiZANidine 4 MG TABLET PO SCH (20:49)
[2019-11-13] MEDS: ATORVASTATIN 40 MG TABLET PO SCH (20:49)
[2019-11-14 04:54] LABS: Basophils % 0.3 % (0.0-0.8); Eosinophils # 0.3 10*3/uL (0.0-0.87); Eosinophils % 3.4 % (0.00-10.9); Hematocrit 31.5 VOL% (42.0-52.0); Hemoglobin 9.4 GM/DL (14.0-18.0); Immature Granulocytes % 0.4 %; Immature Granulocytes Absolute 0.03 #; Lymphocytes # 1.5 10*3/uL (1.4-4.0); Lymphocytes % 19.8 % (21.2-54.2); Mean Corpuscular HGB Conc 29.8 GM/DL (32-36); Mean Corpuscular Volume 88.5 FL (87-102); Mean Platelet Volume 10.3 FL (9.6-12.0); Monocytes % 8.8 % (1.7-12.7); Neutrophils % 67.3 % (38.7-73.9); Platelet Count 117 T/CUMM (130-400); Red Blood Count 3.56 MC/CUMM (3.8-5.5); Red Cell Distribution Width 15.9 % (9.3-17.3); White Blood Count 7.6 T/CUMM (4-12)
[2019-11-14] MEDS: LEVOTHYROXINE 50 MCG TABLET PO SCH (05:03)
[2019-11-14 05:23] LABS: Osmolality,Calculated 287.5 MOS/KG (273-304)
[2019-11-14] MEDS: hydrALAZINE 25 MG TABLET PO SCH ×5 (06:25→16:35)
[2019-11-14] MEDS: carvediloL 6.25 MG TABLET PO SCH ×3 (06:26→21:46)
[2019-11-14] MEDS: ISOSORBIDE DINITRATE 20 MG TABLET PO SCH ×4 (06:26→21:46)
[2019-11-14] MEDS: INSULIN LISPRO 100 UNIT/ML SUBCUT SCH ×4 (07:33→21:46)
[2019-11-14] MEDS ORDERED: CLINDAMYCIN INJ 50 ML IV ONE ×2 (07:46→07:48)
[2019-11-14] MEDS ORDERED: SODIUM CHLORIDE 0.9% 1,000 ML IV SCH (09:40)
[2019-11-14] MEDS ORDERED: ONDANSETRON 4 MG/2 ML VIAL IV PRN (09:40)
[2019-11-14] MEDS ORDERED: ONDANSETRON 4 MG/2 ML VIAL ONE (09:42)
[2019-11-14] MEDS ORDERED: HYDROmorphone 2 MG/1 ML VIAL ONE (09:42)
[2019-11-14] MEDS ORDERED: DEXAMETHASONE 4 MG/1 ML VIAL ONE ×2 (09:44→09:50)
[2019-11-14] MEDS ORDERED: ROPIVACAINE 0.5% 30 ML VIAL ONE (09:44)
[2019-11-14] MEDS: HYDROmorphone 2 MG/1 ML VIAL IV PRN ×7 (09:45→23:05)
[2019-11-14] MEDS ORDERED: SODIUM CHLORIDE 0.9% 250 ML IV SCH (09:45)
[2019-11-14] MEDS ORDERED: MIDAZOLAM 2 MG/2 ML VIAL ONE (09:49)
[2019-11-14] MEDS ORDERED: LIDOCAINE 2% 5 ML VIAL ONE (09:49)
[2019-11-14] MEDS ORDERED: fentaNYL 100 MCG/2 ML VIAL ONE (09:49)
[2019-11-14] MEDS ORDERED: SEVOFLURANE 1 UNIT/15 MINUTE INH ONE (09:49)
[2019-11-14] MEDS ORDERED: propofoL 200 MG/20 ML VIAL IV ONE (09:49)
[2019-11-14] MEDS ORDERED: EPINEPHrine 1 MG/ML VIAL ONE (09:50)
[2019-11-14] MEDS ORDERED: PHENYLEPHRINE DRIP 20 MG/250 ML PREMIX IV ONE (09:51)
[2019-11-14] MEDS ORDERED: CALCIUM CHLORIDE 1,000 MG/10 ML VIAL IV ONE (09:51)
[2019-11-14] MEDS ORDERED: ePHEDrine 50 MG/ML AMP ONE (09:52)
[2019-11-14] MEDS ORDERED: PHENYLEPHRINE 1 MG/10 ML SYRINGE IV ONE (09:52)
[2019-11-14] MEDS ORDERED: ACETAMINOPHEN 1,000 MG/100 ML VIAL IV ONE (09:52)
[2019-11-14] MEDS ORDERED: SODIUM CHLORIDE 0.9% 250 ML IV ONE (09:52)
[2019-11-14] MEDS: ALBUTEROL/IPRATROPIUM 3 ML NEB RESP TX SCH ×4 (09:55→20:24)
[2019-11-14 12:04] LABS: Basophils % 0.2 % (0.0-0.8); Eosinophils # 0.1 10*3/uL (0.0-0.87); Eosinophils % 0.4 % (0.00-10.9); Hematocrit 27.7 VOL% (42.0-52.0); Hemoglobin 8.1 GM/DL (14.0-18.0); Immature Granulocytes % 0.5 %; Immature Granulocytes Absolute 0.09 #; Lymphocytes # 0.7 10*3/uL (1.4-4.0); Lymphocytes % 4.3 % (21.2-54.2); Mean Corpuscular HGB Conc 29.2 GM/DL (32-36); Mean Corpuscular Volume 90.8 FL (87-102); Monocytes % 1.6 % (1.7-12.7); Platelet Count 157 T/CUMM (130-400); Red Blood Count 3.05 MC/CUMM (3.8-5.5); Red Cell Distribution Width 15.9 % (9.3-17.3); White Blood Count 17.1 T/CUMM (4-12)
[2019-11-14 12:35] LABS: Osmolality,Calculated 289.5 MOS/KG (273-304)
[2019-11-14] MEDS: SODIUM HYPOCHLORITE 0.25% IRRIG 473 ML BOTTLE TOP SCH (12:54)
[2019-11-14] MEDS: GABAPENTIN 300 MG CAPSULE PO SCH ×3 (12:55→16:33)
[2019-11-14] MEDS: COLLAGENASE OINT 30 GM TUBE TOP SCH (12:55)
[2019-11-14] MEDS: metOLazone 5 MG TABLET PO SCH (12:55)
[2019-11-14] MEDS: FUROSEMIDE 40 MG/4 ML VIAL IV SCH ×2 (12:56→16:32)
[2019-11-14] MEDS: SPIRONOLACTONE 25 MG TABLET PO SCH ×2 (12:56→21:46)
[2019-11-14 13:38] LABS: Platelet Estimate Normal
[2019-11-14 13:40] LABS: Anisocytosis Slight; Hypochromasia 2+; Microcytosis Slight; Polychromasia 1+
[2019-11-14] MEDS: ASPIRIN EC 81 MG TABLET PO SCH (13:49)
[2019-11-14] MEDS: CITALOPRAM 20 MG TABLET PO SCH (13:49)
[2019-11-14] MEDS: LEVOFLOXACIN 750 MG TABLET PO SCH (16:35)
[2019-11-14 18:10] LABS: Hematocrit 24.4 VOL% (42.0-52.0); Hemoglobin 7.2 GM/DL (14.0-18.0)
[2019-11-14] MEDS: ONDANSETRON 4 MG/2 ML VIAL IV PRN (19:55)
[2019-11-14] MEDS: tiZANidine 4 MG TABLET PO SCH (21:46)
[2019-11-14] MEDS: ATORVASTATIN 40 MG TABLET PO SCH (21:46)
[2019-11-14] MEDS: ENOXAPARIN 40 MG/0.4 ML SYRINGE SUBCUT SCH (21:46)
[2019-11-14] MEDS: INSULIN GLARGINE 100 UNIT/ML SUBCUT SCH (21:46)
[2019-11-14] MEDS ORDERED: FUROSEMIDE 20 MG/2 ML VIAL IV ONE (22:00)
[2019-11-15] MEDS: ALBUTEROL/IPRATROPIUM 3 ML NEB RESP TX SCH ×4 (01:35→20:05)
[2019-11-15 02:44] LABS: Hemoglobin 7.7 GM/DL (14.0-18.0)
[2019-11-15 05:04] LABS: Basophils % 0.1 % (0.0-0.8); Eosinophils % 0.1 % (0.00-10.9); Hematocrit 24.6 VOL% (42.0-52.0); Hemoglobin 7.5 GM/DL (14.0-18.0); Immature Granulocytes % 0.3 %; Immature Granulocytes Absolute 0.03 #; Lymphocytes # 0.9 10*3/uL (1.4-4.0); Lymphocytes % 8.4 % (21.2-54.2); Mean Corpuscular HGB Conc 30.5 GM/DL (32-36); Mean Corpuscular Volume 90.4 FL (87-102); Mean Platelet Volume 11.8 FL (9.6-12.0); Monocytes % 8.2 % (1.7-12.7); Neutrophils % 82.9 % (38.7-73.9); Platelet Count 109 T/CUMM (130-400); Red Blood Count 2.72 MC/CUMM (3.8-5.5); Red Cell Distribution Width 15.9 % (9.3-17.3); White Blood Count 10.1 T/CUMM (4-12)
[2019-11-15] MEDS: HYDROmorphone 2 MG/1 ML VIAL IV PRN ×4 (05:25→21:44)
[2019-11-15] MEDS: LEVOTHYROXINE 50 MCG TABLET PO SCH (05:25)
[2019-11-15 05:37] LABS: Calcium 8.4 MG/DL (8.5-10.1); Osmolality,Calculated 292.7 MOS/KG (273-304)
[2019-11-15] MEDS: ONDANSETRON 4 MG/2 ML VIAL IV PRN ×2 (07:50→21:44)
[2019-11-15] MEDS: INSULIN LISPRO 100 UNIT/ML SUBCUT SCH ×4 (08:16→21:32)
[2019-11-15] MEDS: FUROSEMIDE 40 MG/4 ML VIAL IV SCH (08:54)
[2019-11-15] MEDS: hydrALAZINE 25 MG TABLET PO SCH ×3 (08:55→17:00)
[2019-11-15] MEDS: GABAPENTIN 300 MG CAPSULE PO SCH ×3 (08:55→17:18)
[2019-11-15] MEDS: ASPIRIN EC 81 MG TABLET PO SCH (08:55)
[2019-11-15] MEDS: CITALOPRAM 20 MG TABLET PO SCH (08:55)
[2019-11-15] MEDS: ISOSORBIDE DINITRATE 20 MG TABLET PO SCH ×3 (08:55→21:32)
[2019-11-15] MEDS: carvediloL 6.25 MG TABLET PO SCH ×2 (08:55→21:32)
[2019-11-15] MEDS: SODIUM HYPOCHLORITE 0.25% IRRIG 473 ML BOTTLE TOP SCH (10:34)
[2019-11-15] MEDS: COLLAGENASE OINT 30 GM TUBE TOP SCH (10:35)
[2019-11-15] MEDS: SPIRONOLACTONE 25 MG TABLET PO SCH (10:39)
[2019-11-15 12:37] LABS: Hematocrit 25.6 VOL% (42.0-52.0); Hemoglobin 7.7 GM/DL (14.0-18.0)
[2019-11-15] MEDS ORDERED: FUROSEMIDE 20 MG/2 ML VIAL IV ONE (16:30)
[2019-11-15 21:18] LABS: Hematocrit 25.4 VOL% (42.0-52.0); Hemoglobin 8.2 GM/DL (14.0-18.0)
[2019-11-15] MEDS: INSULIN GLARGINE 100 UNIT/ML SUBCUT SCH (21:31)
[2019-11-15] MEDS: tiZANidine 4 MG TABLET PO SCH (21:31)
[2019-11-15] MEDS: ATORVASTATIN 40 MG TABLET PO SCH (21:31)
[2019-11-15] MEDS: ENOXAPARIN 40 MG/0.4 ML SYRINGE SUBCUT SCH ×3 (21:32→21:50)
[2019-11-15] MEDS: ENOXAPARIN 30 MG/0.3 ML SYRINGE SUBCUT SCH (23:30)
[2019-11-16] MEDS: ALBUTEROL/IPRATROPIUM 3 ML NEB RESP TX SCH ×4 (01:10→20:35)
[2019-11-16] MEDS: HYDROmorphone 2 MG/1 ML VIAL IV PRN ×3 (02:44→16:50)
[2019-11-16] MEDS: ONDANSETRON 4 MG/2 ML VIAL IV PRN ×3 (02:45→17:15)
[2019-11-16 06:20] LABS: Basophils % 0.2 % (0.0-0.8); Eosinophils # 0.1 10*3/uL (0.0-0.87); Eosinophils % 1.7 % (0.00-10.9); Hematocrit 27.7 VOL% (42.0-52.0); Hemoglobin 8.6 GM/DL (14.0-18.0); Immature Granulocytes % 0.2 %; Immature Granulocytes Absolute 0.02 #; Lymphocytes # 2.1 10*3/uL (1.4-4.0); Lymphocytes % 24.6 % (21.2-54.2); Mean Corpuscular Volume 90.2 FL (87-102); Mean Platelet Volume 11.2 FL (9.6-12.0); Monocytes % 10.8 % (1.7-12.7); Neutrophils % 62.5 % (38.7-73.9); Platelet Count 109 T/CUMM (130-400); Red Blood Count 3.07 MC/CUMM (3.8-5.5); Red Cell Distribution Width 15.9 % (9.3-17.3); White Blood Count 8.4 T/CUMM (4-12)
[2019-11-16] MEDS: LEVOTHYROXINE 50 MCG TABLET PO SCH (06:24)
[2019-11-16 06:42] LABS: Calcium 8.1 MG/DL (8.5-10.1)
[2019-11-16] MEDS ORDERED: FUROSEMIDE 40 MG/4 ML VIAL IV SCH (09:00)
[2019-11-16] MEDS: hydrALAZINE 25 MG TABLET PO SCH ×3 (10:02→18:19)
[2019-11-16] MEDS: ASPIRIN EC 81 MG TABLET PO SCH (10:02)
[2019-11-16] MEDS: GABAPENTIN 300 MG CAPSULE PO SCH ×3 (10:02→18:00)
[2019-11-16] MEDS: carvediloL 6.25 MG TABLET PO SCH ×2 (10:02→21:38)
[2019-11-16] MEDS: CITALOPRAM 20 MG TABLET PO SCH (10:02)
[2019-11-16] MEDS: ISOSORBIDE DINITRATE 20 MG TABLET PO SCH ×3 (10:02→21:38)
[2019-11-16] MEDS: INSULIN LISPRO 100 UNIT/ML SUBCUT SCH ×4 (10:17→21:38)
[2019-11-16] MEDS: SODIUM HYPOCHLORITE 0.25% IRRIG 473 ML BOTTLE TOP SCH (10:18)
[2019-11-16] MEDS: COLLAGENASE OINT 30 GM TUBE TOP SCH (10:27)
[2019-11-16] MEDS ORDERED: DEXTROSE 10% 250 ML IV ONE (16:47)
[2019-11-16] MEDS ORDERED: DEXTROSE 10% 250 ML IV SCH (16:50)
[2019-11-16] MEDS ORDERED: SODIUM CHLORIDE 0.9% 500 ML IV ONE (17:00)
[2019-11-16] MEDS ORDERED: DEXTROSE 10% 250 ML BAG IV PRN (18:30)
[2019-11-16] MEDS: ENOXAPARIN 30 MG/0.3 ML SYRINGE SUBCUT SCH (21:38)
[2019-11-16] MEDS: tiZANidine 4 MG TABLET PO SCH (21:38)
[2019-11-16] MEDS: ATORVASTATIN 40 MG TABLET PO SCH (21:38)
[2019-11-17] MEDS: ALBUTEROL/IPRATROPIUM 3 ML NEB RESP TX SCH ×5 (00:05→20:10)
[2019-11-17] MEDS: HYDROmorphone 2 MG/1 ML VIAL IV PRN ×2 (01:49→10:24)
[2019-11-17 06:08] LABS: Basophils % 0.3 % (0.0-0.8); Eosinophils # 0.1 10*3/uL (0.0-0.87); Eosinophils % 1.6 % (0.00-10.9); Hematocrit 26.1 VOL% (42.0-52.0); Hemoglobin 8.2 GM/DL (14.0-18.0); Immature Granulocytes % 0.3 %; Immature Granulocytes Absolute 0.02 #; Lymphocytes # 1.4 10*3/uL (1.4-4.0); Lymphocytes % 20.3 % (21.2-54.2); Mean Corpuscular HGB Conc 31.4 GM/DL (32-36); Mean Corpuscular Volume 87.9 FL (87-102); Mean Platelet Volume 11.4 FL (9.6-12.0); Monocytes % 10.9 % (1.7-12.7); Neutrophils % 66.6 % (38.7-73.9); Platelet Count 106 T/CUMM (130-400); Red Blood Count 2.97 MC/CUMM (3.8-5.5); Red Cell Distribution Width 15.9 % (9.3-17.3); White Blood Count 7.1 T/CUMM (4-12)
[2019-11-17] MEDS: LEVOTHYROXINE 50 MCG TABLET PO SCH (06:12)
[2019-11-17 06:30] LABS: Calcium 8.1 MG/DL (8.5-10.1)
[2019-11-17] MEDS: INSULIN LISPRO 100 UNIT/ML SUBCUT SCH ×4 (07:34→21:29)
[2019-11-17] MEDS: COLLAGENASE OINT 30 GM TUBE TOP SCH (08:53)
[2019-11-17] MEDS: SODIUM HYPOCHLORITE 0.25% IRRIG 473 ML BOTTLE TOP SCH (08:53)
[2019-11-17] MEDS: hydrALAZINE 25 MG TABLET PO SCH ×3 (09:05→17:34)
[2019-11-17] MEDS: CITALOPRAM 20 MG TABLET PO SCH (10:15)
[2019-11-17] MEDS: carvediloL 6.25 MG TABLET PO SCH ×2 (10:15→21:29)
[2019-11-17] MEDS: ASPIRIN EC 81 MG TABLET PO SCH (10:16)
[2019-11-17] MEDS: ISOSORBIDE DINITRATE 20 MG TABLET PO SCH ×3 (10:16→21:37)
[2019-11-17] MEDS: GABAPENTIN 300 MG CAPSULE PO SCH ×3 (10:16→17:34)
[2019-11-17] MEDS: CLINDAMYCIN INJ 900 MG in PREMIX 1 EACH IV SCH ×2 (12:05→21:29)
[2019-11-17] MEDS ORDERED: LACTULOSE 20 GM/30 ML UDCUP PO PRN (14:46)
[2019-11-17] MEDS ORDERED: LACTULOSE 20 GM/30 ML UDCUP PO ONE (14:46)
[2019-11-17] MEDS: DOCUSATE SODIUM 100 MG/10 ML UDCUP PO SCH ×2 (14:54→21:37)
[2019-11-17] MEDS: ATORVASTATIN 40 MG TABLET PO SCH (21:28)
[2019-11-17] MEDS: tiZANidine 4 MG TABLET PO SCH (21:28)
[2019-11-17] MEDS: ENOXAPARIN 30 MG/0.3 ML SYRINGE SUBCUT SCH (21:29)
[2019-11-17] MEDS: DOCUSATE SODIUM 100 MG CAPSULE PO PRN (21:35)
[2019-11-18] MEDS: ALBUTEROL/IPRATROPIUM 3 ML NEB RESP TX SCH ×4 (00:14→19:48)
[2019-11-18 04:46] LABS: Basophils % 0.4 % (0.0-0.8); Eosinophils # 0.2 10*3/uL (0.0-0.87); Eosinophils % 2.6 % (0.00-10.9); Hematocrit 27.1 VOL% (42.0-52.0); Hemoglobin 8.3 GM/DL (14.0-18.0); Immature Granulocytes % 0.2 %; Immature Granulocytes Absolute 0.01 #; Lymphocytes # 1.2 10*3/uL (1.4-4.0); Mean Corpuscular HGB Conc 30.6 GM/DL (32-36); Mean Corpuscular Volume 90.6 FL (87-102); Mean Platelet Volume 11.6 FL (9.6-12.0); Monocytes % 10.9 % (1.7-12.7); Neutrophils % 64.9 % (38.7-73.9); Platelet Count 112 T/CUMM (130-400); Red Blood Count 2.99 MC/CUMM (3.8-5.5); Red Cell Distribution Width 15.4 % (9.3-17.3); White Blood Count 5.7 T/CUMM (4-12)
[2019-11-18 05:23] LABS: Calcium 8.4 MG/DL (8.5-10.1); Osmolality,Calculated 296.1 MOS/KG (273-304)
[2019-11-18] MEDS: LEVOTHYROXINE 50 MCG TABLET PO SCH (05:49)
[2019-11-18] MEDS: CLINDAMYCIN INJ 900 MG in PREMIX 1 EACH IV SCH ×3 (05:49→21:36)
[2019-11-18] MEDS: ASPIRIN EC 81 MG TABLET PO SCH (08:33)
[2019-11-18] MEDS: CITALOPRAM 20 MG TABLET PO SCH (08:33)
[2019-11-18] MEDS: hydrALAZINE 25 MG TABLET PO SCH ×3 (08:33→16:59)
[2019-11-18] MEDS: GABAPENTIN 300 MG CAPSULE PO SCH ×3 (08:33→16:59)
[2019-11-18] MEDS: DOCUSATE SODIUM 100 MG/10 ML UDCUP PO SCH ×2 (08:34→21:26)
[2019-11-18] MEDS: carvediloL 6.25 MG TABLET PO SCH ×2 (08:34→21:27)
[2019-11-18] MEDS: ISOSORBIDE DINITRATE 20 MG TABLET PO SCH ×3 (08:34→21:27)
[2019-11-18] MEDS: INSULIN LISPRO 100 UNIT/ML SUBCUT SCH ×4 (08:35→21:20)
[2019-11-18] MEDS: SODIUM HYPOCHLORITE 0.25% IRRIG 473 ML BOTTLE TOP SCH (11:46)
[2019-11-18] MEDS: COLLAGENASE OINT 30 GM TUBE TOP SCH (11:46)
[2019-11-18] MEDS ORDERED: ALPRAZolam 0.5 MG TABLET PO PRN (14:30)
[2019-11-18] MEDS: INSULIN GLARGINE 100 UNIT/ML SUBCUT SCH (21:22)
[2019-11-18] MEDS: ENOXAPARIN 30 MG/0.3 ML SYRINGE SUBCUT SCH (21:23)
[2019-11-18] MEDS: ATORVASTATIN 40 MG TABLET PO SCH (21:27)
[2019-11-18] MEDS: tiZANidine 4 MG TABLET PO SCH (21:27)
[2019-11-19] MEDS: ALBUTEROL/IPRATROPIUM 3 ML NEB RESP TX SCH ×4 (00:49→19:35)
[2019-11-19 05:00] LABS: Basophils % 0.1 % (0.0-0.8); Eosinophils # 0.3 10*3/uL (0.0-0.87); Eosinophils % 3.5 % (0.00-10.9); Hematocrit 27.9 VOL% (42.0-52.0); Hemoglobin 8.6 GM/DL (14.0-18.0); Immature Granulocytes % 0.4 %; Immature Granulocytes Absolute 0.03 #; Lymphocytes # 1.5 10*3/uL (1.4-4.0); Lymphocytes % 20.2 % (21.2-54.2); Mean Corpuscular HGB Conc 30.8 GM/DL (32-36); Mean Corpuscular Volume 89.1 FL (87-102); Mean Platelet Volume 11.5 FL (9.6-12.0); Monocytes % 10.3 % (1.7-12.7); Neutrophils % 65.5 % (38.7-73.9); Platelet Count 145 T/CUMM (130-400); Red Blood Count 3.13 MC/CUMM (3.8-5.5); Red Cell Distribution Width 15.6 % (9.3-17.3); White Blood Count 7.2 T/CUMM (4-12)
[2019-11-19 05:18] LABS: Calcium 8.7 MG/DL (8.5-10.1); Osmolality,Calculated 292.7 MOS/KG (273-304)
[2019-11-19] MEDS: LEVOTHYROXINE 50 MCG TABLET PO SCH (05:22)
[2019-11-19 05:24] LABS: Risk Ratio 3.89; VLDL CHOLESTEROL 21.8 MG/DL
[2019-11-19] MEDS: CLINDAMYCIN INJ 900 MG in PREMIX 1 EACH IV SCH ×3 (05:25→21:17)
[2019-11-19] MEDS: metOLazone 2.5 MG TABLET PO SCH (10:29)
[2019-11-19] MEDS: LINEZOLID 600 MG TABLET PO SCH ×2 (10:29→21:20)
[2019-11-19] MEDS: hydrALAZINE 25 MG TABLET PO SCH ×3 (10:30→16:50)
[2019-11-19] MEDS: ISOSORBIDE DINITRATE 20 MG TABLET PO SCH ×3 (10:30→21:19)
[2019-11-19] MEDS: GABAPENTIN 300 MG CAPSULE PO SCH ×3 (10:30→16:49)
[2019-11-19] MEDS: carvediloL 6.25 MG TABLET PO SCH ×2 (10:30→21:19)
[2019-11-19] MEDS: CITALOPRAM 20 MG TABLET PO SCH (10:31)
[2019-11-19] MEDS: FUROSEMIDE 40 MG TABLET PO SCH ×2 (10:31→15:07)
[2019-11-19] MEDS: ASPIRIN EC 81 MG TABLET PO SCH (10:31)
[2019-11-19] MEDS: INSULIN LISPRO 100 UNIT/ML SUBCUT SCH ×4 (10:32→21:20)
[2019-11-19] MEDS: DOCUSATE SODIUM 100 MG/10 ML UDCUP PO SCH ×2 (10:34→21:25)
[2019-11-19] MEDS: HYDROmorphone 2 MG/1 ML VIAL IV PRN (10:41)
[2019-11-19] MEDS: SODIUM HYPOCHLORITE 0.25% IRRIG 473 ML BOTTLE TOP SCH (12:28)
[2019-11-19] MEDS: COLLAGENASE OINT 30 GM TUBE TOP SCH (12:29)
[2019-11-19] MEDS: ENOXAPARIN 30 MG/0.3 ML SYRINGE SUBCUT SCH (21:19)
[2019-11-19] MEDS: ATORVASTATIN 40 MG TABLET PO SCH (21:20)
[2019-11-19] MEDS: tiZANidine 4 MG TABLET PO SCH (21:20)
[2019-11-19] MEDS: DOCUSATE SODIUM 100 MG CAPSULE PO PRN ×2 (21:20→21:24)
[2019-11-19] MEDS: INSULIN GLARGINE 100 UNIT/ML SUBCUT SCH (21:23)
[2019-11-20] MEDS: ALBUTEROL/IPRATROPIUM 3 ML NEB RESP TX SCH ×4 (01:48→19:21)
[2019-11-20 05:37] LABS: Basophils % 0.3 % (0.0-0.8); Eosinophils # 0.2 10*3/uL (0.0-0.87); Eosinophils % 3.2 % (0.00-10.9); Hematocrit 27.6 VOL% (42.0-52.0); Hemoglobin 8.1 GM/DL (14.0-18.0); Immature Granulocytes % 0.3 %; Immature Granulocytes Absolute 0.02 #; Lymphocytes # 1.4 10*3/uL (1.4-4.0); Lymphocytes % 21.8 % (21.2-54.2); Mean Corpuscular HGB Conc 29.3 GM/DL (32-36); Mean Corpuscular Volume 92.6 FL (87-102); Mean Platelet Volume 11.4 FL (9.6-12.0); Neutrophils % 62.4 % (38.7-73.9); Platelet Count 157 T/CUMM (130-400); Red Blood Count 2.98 MC/CUMM (3.8-5.5); Red Cell Distribution Width 15.6 % (9.3-17.3); White Blood Count 6.3 T/CUMM (4-12)
[2019-11-20 05:47] LABS: Calcium 8.4 MG/DL (8.5-10.1)
[2019-11-20] MEDS: CLINDAMYCIN INJ 900 MG in PREMIX 1 EACH IV SCH (06:05)
[2019-11-20] MEDS: LEVOTHYROXINE 50 MCG TABLET PO SCH (06:10)
[2019-11-20] MEDS: INSULIN LISPRO 100 UNIT/ML SUBCUT SCH ×4 (07:44→20:39)
[2019-11-20] MEDS ORDERED: POTASSIUM CHLORIDE 20 MEQ TABLET PO ONE (08:14)
[2019-11-20] MEDS: LEVOFLOXACIN INJ 500 MG in PREMIX 1 EACH IV SCH (10:22)
[2019-11-20] MEDS: LINEZOLID 600 MG TABLET PO SCH ×2 (10:28→20:36)
[2019-11-20] MEDS: DOCUSATE SODIUM 100 MG/10 ML UDCUP PO SCH ×2 (10:28→20:37)
[2019-11-20] MEDS: metOLazone 2.5 MG TABLET PO SCH (10:28)
[2019-11-20] MEDS: DOCUSATE SODIUM 100 MG CAPSULE PO PRN (10:29)
[2019-11-20] MEDS: ASPIRIN EC 81 MG TABLET PO SCH (10:29)
[2019-11-20] MEDS: carvediloL 6.25 MG TABLET PO SCH ×2 (10:30→20:36)
[2019-11-20] MEDS: SPIRONOLACTONE 25 MG TABLET PO SCH ×2 (10:30→10:31)
[2019-11-20] MEDS: FUROSEMIDE 40 MG TABLET PO SCH ×2 (10:30→17:12)
[2019-11-20] MEDS: GABAPENTIN 300 MG CAPSULE PO SCH ×3 (10:30→17:12)
[2019-11-20] MEDS: HYDROmorphone 2 MG/1 ML VIAL IV PRN (18:00)
[2019-11-20] MEDS: tiZANidine 4 MG TABLET PO SCH (20:37)
[2019-11-20] MEDS: ATORVASTATIN 40 MG TABLET PO SCH (20:37)
[2019-11-20] MEDS: INSULIN GLARGINE 100 UNIT/ML SUBCUT SCH (20:39)
[2019-11-20] MEDS: ENOXAPARIN 30 MG/0.3 ML SYRINGE SUBCUT SCH (21:07)
[2019-11-21] MEDS: ALBUTEROL/IPRATROPIUM 3 ML NEB RESP TX SCH ×3 (01:54→14:40)
[2019-11-21 05:47] LABS: Basophils % 0.4 % (0.0-0.8); Eosinophils # 0.3 10*3/uL (0.0-0.87); Hematocrit 28.2 VOL% (42.0-52.0); Hemoglobin 8.6 GM/DL (14.0-18.0); Immature Granulocytes % 0.2 %; Immature Granulocytes Absolute 0.01 #; Lymphocytes # 1.3 10*3/uL (1.4-4.0); Lymphocytes % 25.7 % (21.2-54.2); Mean Corpuscular HGB Conc 30.5 GM/DL (32-36); Mean Corpuscular Volume 89.5 FL (87-102); Mean Platelet Volume 10.8 FL (9.6-12.0); Monocytes % 12.2 % (1.7-12.7); Neutrophils % 56.5 % (38.7-73.9); Platelet Count 159 T/CUMM (130-400); Red Blood Count 3.15 MC/CUMM (3.8-5.5); Red Cell Distribution Width 15.4 % (9.3-17.3); White Blood Count 5.2 T/CUMM (4-12)
[2019-11-21 06:16] LABS: Calcium 8.5 MG/DL (8.5-10.1); Osmolality,Calculated 288.7 MOS/KG (273-304)
[2019-11-21] MEDS: LEVOTHYROXINE 50 MCG TABLET PO SCH (06:34)
[2019-11-21] MEDS: metOLazone 2.5 MG TABLET PO SCH (10:27)
[2019-11-21] MEDS: GABAPENTIN 300 MG CAPSULE PO SCH ×2 (10:27→13:39)
[2019-11-21] MEDS: ASPIRIN EC 81 MG TABLET PO SCH (10:27)
[2019-11-21] MEDS: FUROSEMIDE 40 MG TABLET PO SCH (10:27)
[2019-11-21] MEDS: LINEZOLID 600 MG TABLET PO SCH (10:27)
[2019-11-21] MEDS: SPIRONOLACTONE 25 MG TABLET PO SCH (10:27)
[2019-11-21] MEDS: DOCUSATE SODIUM 100 MG CAPSULE PO PRN (10:28)
[2019-11-21] MEDS: carvediloL 6.25 MG TABLET PO SCH (10:28)
[2019-11-21] MEDS: INSULIN LISPRO 100 UNIT/ML SUBCUT SCH ×2 (10:29→12:45)
[2019-11-21] MEDS: LEVOFLOXACIN INJ 500 MG in PREMIX 1 EACH IV SCH (10:29)
[2019-11-21] MEDS: DOCUSATE SODIUM 100 MG/10 ML UDCUP PO SCH (10:29)
[2019-11-21 13:39] VITALS: BP 109/95
== END 2019-11-21 13:35 | DRG 239 ==
LOC: EDBD → EDUNIT# → N.ED 16:38 → N.EDINP 19:52 → SUATTDRO 19:52 → SUPCPDRO 19:52 → N.5E 20:33 → N.CC 11-14 11:10 → N.3E 11-17 18:35
PROVIDERS: ADMIT Family Medicine; ATTEND Internal Medicine

== ENCOUNTER 2019-12-31 19:37 | Inpatient (IN) ==
[2019-12-31 20:35] LABS: Basophils % 0.2 % (0.0-0.8); Eosinophils # 0.1 10*3/uL (0.0-0.87); Eosinophils % 0.6 % (0.00-10.9); Hematocrit 23.9 VOL% (42.0-52.0); Hemoglobin 7.4 GM/DL (14.0-18.0); Immature Granulocytes % 0.9 %; Immature Granulocytes Absolute 0.16 #; Lymphocytes # 1.7 10*3/uL (1.4-4.0); Lymphocytes % 10.2 % (21.2-54.2); Mean Platelet Volume 11.5 FL (9.6-12.0); Monocytes % 5.6 % (1.7-12.7); Neutrophils % 82.5 % (38.7-73.9); Platelet Count 263 T/CUMM (130-400); Red Blood Count 2.95 MC/CUMM (3.8-5.5); Red Cell Distribution Width 16.5 % (9.3-17.3)
[2019-12-31 20:55] LABS: Albumin 2.1 G/DL (3.4-5.0); Bilirubin,Total 0.4 MG/DL (0.2-1.0); Calcium 8.2 MG/DL (8.5-10.1); Osmolality,Calculated 275.2 MOS/KG (273-304); Total Protein 6.8 G/DL (6.4-8.3)
[2019-12-31] MEDS ORDERED: SODIUM CHLORIDE 0.9% 1,000 ML IV STA (21:20)
[2019-12-31] MEDS ORDERED: PIPERACILLIN/TAZOBACTAM 3,375 MG in SODIUM CHLORIDE 0.9% 100 ML IV STA (21:24)
[2019-12-31] MEDS ORDERED: VANCOMYCIN INJ 1,000 MG in SODIUM CHLORIDE 0.9% 250 ML IV STA (21:26)
[2019-12-31 22:16] LABS: Ferritin 511.9 ng/ml (26-388)
[2019-12-31] MEDS ORDERED: GLUCAGON 1 MG VIAL IM PRN (23:32)
[2019-12-31] MEDS ORDERED: DEXTROSE 50% 25 GM/50 ML VIAL IV PRN (23:32)
[2019-12-31] MEDS ORDERED: ONDANSETRON 4 MG/2 ML VIAL IV PRN (23:50)
[2019-12-31] MEDS ORDERED: ACETAMINOPHEN 325 MG TABLET PO PRN (23:50)
[2019-12-31] MEDS ORDERED: hydrALAZINE 20 MG/1 ML VIAL IV PRN (23:50)
[2020-01-01] MEDS ORDERED: VANCOMYCIN INJ 1,750 MG in SODIUM CHLORIDE 0.9% 500 ML IV PRN (01:06)
[2020-01-01] MEDS ORDERED: VANCOMYCIN INJ 1,500 MG in SODIUM CHLORIDE 0.9% 500 ML IV ONE (02:00)
[2020-01-01] MEDS: INSULIN REGULAR 100 UNIT/ML SUBCUT SCH ×4 (02:43→18:00)
[2020-01-01 03:05] LABS: Apearance,Urine CLEAR (Clear); Bilirubin,Urine Negative (Negative); Blood, Urine Negative (Negative); Glucose,Urine (UA) Negative (Negative); Hyaline Casts,Urine 8 /LPF (0-3); Ketones,Urine Negative (Negative); Mucus,Urine Occasional /LPF (Occasional); Nitrite,Urine Negative (Negative); Protein,Urine 100 MG/DL; RBC,Urine 2 /HPF (0-4); Urine Color Yellow (Yellow); Urine Specific Gravity 1.012 (1.001-1.035); WBC,Urine 1 /HPF (0-6)
[2020-01-01] MEDS: SODIUM CHLORIDE 0.9% 1,000 ML IV SCH ×3 (04:33→17:44)
[2020-01-01 07:08] LABS: Basophils % 0.3 % (0.0-0.8); Eosinophils # 0.1 10*3/uL (0.0-0.87); Eosinophils % 0.8 % (0.00-10.9); Hematocrit 21.7 VOL% (42.0-52.0); Immature Granulocytes % 0.7 %; Lymphocytes # 1.7 10*3/uL (1.4-4.0); Lymphocytes % 12.1 % (21.2-54.2); Mean Corpuscular HGB Conc 31.3 GM/DL (32-36); Mean Corpuscular Volume 81.9 FL (87-102); Mean Platelet Volume 11.6 FL (9.6-12.0); Monocytes % 7.8 % (1.7-12.7); Neutrophils % 78.3 % (38.7-73.9); Platelet Count 230 T/CUMM (130-400); Red Blood Count 2.65 MC/CUMM (3.8-5.5); Red Cell Distribution Width 16.6 % (9.3-17.3)
[2020-01-01 07:10] LABS: Hemoglobin 6.8 GM/DL (14.0-18.0)
[2020-01-01 07:15] LABS: Albumin 1.9 G/DL (3.4-5.0); Bilirubin,Total 0.5 MG/DL (0.2-1.0); Calcium 8.2 MG/DL (8.5-10.1); Osmolality,Calculated 273.2 MOS/KG (273-304); Total Protein 6.5 G/DL (6.4-8.3)
[2020-01-01] MEDS: PIPERACILLIN/TAZOBACTAM 3,375 MG in SODIUM CHLORIDE 0.9% 100 ML IV SCH ×2 (09:35→17:36)
[2020-01-01] MEDS ORDERED: SODIUM CHLORIDE 0.9% 1,000 ML IV PRN (11:03)
[2020-01-01] MEDS ORDERED: DEXTROSE 50% 25 GM/50 ML VIAL IV PRN (12:24)
[2020-01-01] MEDS ORDERED: FUROSEMIDE 40 MG/4 ML VIAL IV ONE (19:16)
[2020-01-02] MEDS: SODIUM CHLORIDE 0.9% 1,000 ML IV SCH ×2 (01:07→17:18)
[2020-01-02] MEDS: INSULIN REGULAR 100 UNIT/ML SUBCUT SCH ×4 (01:10→17:15)
[2020-01-02] MEDS: PIPERACILLIN/TAZOBACTAM 3,375 MG in SODIUM CHLORIDE 0.9% 100 ML IV SCH ×2 (02:07→10:15)
[2020-01-02 06:02] LABS: Basophils % 0.3 % (0.0-0.8); Eosinophils # 0.2 10*3/uL (0.0-0.87); Eosinophils % 2.2 % (0.00-10.9); Hematocrit 26.8 VOL% (42.0-52.0); Hemoglobin 8.3 GM/DL (14.0-18.0); Immature Granulocytes % 0.5 %; Immature Granulocytes Absolute 0.05 #; Lymphocytes # 1.3 10*3/uL (1.4-4.0); Lymphocytes % 14.3 % (21.2-54.2); Mean Corpuscular Volume 82.5 FL (87-102); Mean Platelet Volume 11.3 FL (9.6-12.0); Monocytes % 7.8 % (1.7-12.7); Neutrophils % 74.9 % (38.7-73.9); Platelet Count 243 T/CUMM (130-400); Red Blood Count 3.25 MC/CUMM (3.8-5.5); Red Cell Distribution Width 16.2 % (9.3-17.3); White Blood Count 9.4 T/CUMM (4-12)
[2020-01-02 06:36] LABS: Calcium 8.5 MG/DL (8.5-10.1); Osmolality,Calculated 281.5 MOS/KG (273-304)
[2020-01-02] MEDS: SODIUM HYPOCHLORITE 0.25% IRRIG 473 ML BOTTLE TOP SCH (09:42)
[2020-01-02] MEDS: VANCOMYCIN INJ 1,750 MG in SODIUM CHLORIDE 0.9% 500 ML IV SCH (11:22)
[2020-01-03] MEDS: INSULIN REGULAR 100 UNIT/ML SUBCUT SCH ×4 (01:45→17:14)
[2020-01-03] MEDS: SODIUM CHLORIDE 0.9% 1,000 ML IV SCH ×5 (01:51→22:11)
[2020-01-03] MEDS: VANCOMYCIN INJ 1,750 MG in SODIUM CHLORIDE 0.9% 500 ML IV SCH ×2 (03:18→22:08)
[2020-01-03] MEDS: SODIUM HYPOCHLORITE 0.25% IRRIG 473 ML BOTTLE TOP SCH (08:00)
[2020-01-03 08:47] LABS: Basophils % 0.4 % (0.0-0.8); Eosinophils # 0.5 10*3/uL (0.0-0.87); Eosinophils % 5.5 % (0.00-10.9); Hematocrit 30.4 VOL% (42.0-52.0); Hemoglobin 9.2 GM/DL (14.0-18.0); Immature Granulocytes % 0.4 %; Immature Granulocytes Absolute 0.03 #; Lymphocytes # 1.3 10*3/uL (1.4-4.0); Lymphocytes % 15.5 % (21.2-54.2); Mean Corpuscular HGB Conc 30.3 GM/DL (32-36); Mean Platelet Volume 10.8 FL (9.6-12.0); Monocytes % 8.3 % (1.7-12.7); Neutrophils % 69.9 % (38.7-73.9); Platelet Count 268 T/CUMM (130-400); Red Blood Count 3.62 MC/CUMM (3.8-5.5); Red Cell Distribution Width 16.3 % (9.3-17.3); White Blood Count 8.4 T/CUMM (4-12)
[2020-01-03 09:14] LABS: Calcium 8.7 MG/DL (8.5-10.1); Osmolality,Calculated 277.1 MOS/KG (273-304)
[2020-01-03] MEDS: MORPHINE 4 MG/1 ML VIAL IV PRN (22:19)
[2020-01-04] MEDS: INSULIN REGULAR 100 UNIT/ML SUBCUT SCH ×4 (01:10→17:32)
[2020-01-04] MEDS: SODIUM CHLORIDE 0.9% 1,000 ML IV SCH ×3 (05:32→16:30)
[2020-01-04 07:21] LABS: Basophils % 0.2 % (0.0-0.8); Eosinophils # 0.5 10*3/uL (0.0-0.87); Eosinophils % 5.8 % (0.00-10.9); Hematocrit 30.8 VOL% (42.0-52.0); Hemoglobin 9.3 GM/DL (14.0-18.0); Immature Granulocytes % 0.6 %; Immature Granulocytes Absolute 0.05 #; Lymphocytes # 1.5 10*3/uL (1.4-4.0); Lymphocytes % 18.2 % (21.2-54.2); Mean Corpuscular HGB Conc 30.2 GM/DL (32-36); Mean Corpuscular Volume 84.4 FL (87-102); Mean Platelet Volume 10.6 FL (9.6-12.0); Monocytes % 8.8 % (1.7-12.7); Neutrophils % 66.4 % (38.7-73.9); Platelet Count 265 T/CUMM (130-400); Red Blood Count 3.65 MC/CUMM (3.8-5.5); Red Cell Distribution Width 16.2 % (9.3-17.3); White Blood Count 8.1 T/CUMM (4-12)
[2020-01-04 08:01] LABS: Calcium 8.3 MG/DL (8.5-10.1); Osmolality,Calculated 277.8 MOS/KG (273-304)
[2020-01-04] MEDS ORDERED: SODIUM HYPOCHLORITE 0.25% IRR 1 APPLIC in IV BAG 1 EACH IRRIG PRN (08:32)
[2020-01-04] MEDS: SODIUM HYPOCHLORITE 0.25% IRRIG 473 ML BOTTLE TOP SCH (10:48)
[2020-01-04] MEDS: VANCOMYCIN INJ 1,750 MG in SODIUM CHLORIDE 0.9% 500 ML IV SCH (21:13)
[2020-01-05] MEDS: INSULIN REGULAR 100 UNIT/ML SUBCUT SCH ×4 (03:46→18:27)
[2020-01-05] MEDS: SODIUM CHLORIDE 0.9% 1,000 ML IV SCH ×4 (05:41→21:04)
[2020-01-05 06:15] LABS: Basophils % 0.2 % (0.0-0.8); Eosinophils # 0.5 10*3/uL (0.0-0.87); Eosinophils % 5.6 % (0.00-10.9); Hematocrit 29.9 VOL% (42.0-52.0); Hemoglobin 8.9 GM/DL (14.0-18.0); Immature Granulocytes % 0.6 %; Immature Granulocytes Absolute 0.05 #; Lymphocytes # 1.9 10*3/uL (1.4-4.0); Mean Corpuscular HGB Conc 29.8 GM/DL (32-36); Mean Corpuscular Volume 85.2 FL (87-102); Mean Platelet Volume 11.5 FL (9.6-12.0); Monocytes % 8.7 % (1.7-12.7); Neutrophils % 60.9 % (38.7-73.9); Platelet Count 223 T/CUMM (130-400); Red Blood Count 3.51 MC/CUMM (3.8-5.5); Red Cell Distribution Width 16.6 % (9.3-17.3); White Blood Count 8.1 T/CUMM (4-12)
[2020-01-05 06:39] LABS: Calcium 8.5 MG/DL (8.5-10.1); Osmolality,Calculated 275.7 MOS/KG (273-304)
[2020-01-05] MEDS: SODIUM HYPOCHLORITE 0.25% IRRIG 473 ML BOTTLE TOP SCH (08:27)
[2020-01-05] MEDS ORDERED: LACTULOSE 20 GM/30 ML UDCUP PO PRN (12:06)
[2020-01-05] MEDS ORDERED: FUROSEMIDE 40 MG TABLET PO SCH (16:00)
[2020-01-05] MEDS ORDERED: GABAPENTIN 600 MG TABLET PO SCH (21:00)
[2020-01-05] MEDS: VANCOMYCIN INJ 1,750 MG in SODIUM CHLORIDE 0.9% 500 ML IV SCH (21:03)
[2020-01-05] MEDS: carvediloL 6.25 MG TABLET PO SCH (21:03)
[2020-01-05] MEDS: ATORVASTATIN 40 MG TABLET PO SCH (21:03)
[2020-01-05] MEDS: MORPHINE 4 MG/1 ML VIAL IV PRN (21:04)
[2020-01-06] MEDS: INSULIN REGULAR 100 UNIT/ML SUBCUT SCH ×4 (01:50→17:46)
[2020-01-06] MEDS: LEVOTHYROXINE 50 MCG TABLET PO SCH (05:43)
[2020-01-06 06:05] LABS: Basophils % 0.4 % (0.0-0.8); Eosinophils # 0.4 10*3/uL (0.0-0.87); Hematocrit 30.6 VOL% (42.0-52.0); Hemoglobin 9.1 GM/DL (14.0-18.0); Immature Granulocytes % 0.5 %; Immature Granulocytes Absolute 0.04 #; Lymphocytes # 1.8 10*3/uL (1.4-4.0); Lymphocytes % 21.9 % (21.2-54.2); Mean Corpuscular HGB Conc 29.7 GM/DL (32-36); Mean Corpuscular Volume 84.1 FL (87-102); Mean Platelet Volume 9.6 FL (9.6-12.0); Neutrophils % 65.2 % (38.7-73.9); Platelet Count 225 T/CUMM (130-400); Red Blood Count 3.64 MC/CUMM (3.8-5.5); Red Cell Distribution Width 16.6 % (9.3-17.3)
[2020-01-06 06:53] LABS: Calcium 8.3 MG/DL (8.5-10.1); Osmolality,Calculated 274.7 MOS/KG (273-304)
[2020-01-06] MEDS: carvediloL 6.25 MG TABLET PO SCH ×2 (08:08→21:36)
[2020-01-06] MEDS: CITALOPRAM 20 MG TABLET PO SCH (08:08)
[2020-01-06] MEDS: POTASSIUM CHLORIDE 20 MEQ TABLET PO PRN ×4 (08:09→17:34)
[2020-01-06] MEDS: SODIUM CHLORIDE 0.9% 1,000 ML IV SCH ×3 (08:09→15:13)
[2020-01-06] MEDS: SODIUM HYPOCHLORITE 0.25% IRRIG 473 ML BOTTLE TOP SCH (08:10)
[2020-01-06] MEDS ORDERED: metOLazone 2.5 MG TABLET PO SCH (09:00)
[2020-01-06] MEDS ORDERED: GABAPENTIN 300 MG CAPSULE PO SCH (09:00)
[2020-01-06] MEDS ORDERED: SPIRONOLACTONE 25 MG TABLET PO SCH (09:00)
[2020-01-06] MEDS: ATORVASTATIN 40 MG TABLET PO SCH (21:36)
[2020-01-06] MEDS: VANCOMYCIN INJ 1,750 MG in SODIUM CHLORIDE 0.9% 500 ML IV SCH (21:36)
[2020-01-07] MEDS: SODIUM CHLORIDE 0.9% 1,000 ML IV SCH ×5 (02:37→23:45)
[2020-01-07] MEDS: INSULIN REGULAR 100 UNIT/ML SUBCUT SCH ×4 (02:39→17:30)
[2020-01-07] MEDS: LEVOTHYROXINE 50 MCG TABLET PO SCH (05:54)
[2020-01-07 07:13] LABS: Basophils % 0.2 % (0.0-0.8); Eosinophils # 0.4 10*3/uL (0.0-0.87); Eosinophils % 4.7 % (0.00-10.9); Hemoglobin 9.5 GM/DL (14.0-18.0); Immature Granulocytes % 0.3 %; Immature Granulocytes Absolute 0.03 #; Lymphocytes % 23.2 % (21.2-54.2); Mean Corpuscular HGB Conc 29.7 GM/DL (32-36); Mean Corpuscular Volume 85.3 FL (87-102); Mean Platelet Volume 10.2 FL (9.6-12.0); Neutrophils % 64.6 % (38.7-73.9); Platelet Count 262 T/CUMM (130-400); Red Blood Count 3.75 MC/CUMM (3.8-5.5); White Blood Count 8.7 T/CUMM (4-12)
[2020-01-07 07:29] LABS: Calcium 8.5 MG/DL (8.5-10.1); Osmolality,Calculated 279.3 MOS/KG (273-304)
[2020-01-07] MEDS: CITALOPRAM 20 MG TABLET PO SCH (08:25)
[2020-01-07] MEDS: carvediloL 6.25 MG TABLET PO SCH ×2 (08:25→21:10)
[2020-01-07] MEDS: SODIUM HYPOCHLORITE 0.25% IRRIG 473 ML BOTTLE TOP SCH (09:54)
[2020-01-07] MEDS: MORPHINE 4 MG/1 ML VIAL IV PRN (10:59)
[2020-01-07] MEDS: ATORVASTATIN 40 MG TABLET PO SCH (21:10)
[2020-01-07] MEDS: VANCOMYCIN INJ 1,750 MG in SODIUM CHLORIDE 0.9% 500 ML IV SCH (21:10)
[2020-01-08] MEDS: MORPHINE 4 MG/1 ML VIAL IV PRN (00:12)
[2020-01-08] MEDS: INSULIN REGULAR 100 UNIT/ML SUBCUT SCH ×2 (03:00→06:39)
[2020-01-08] MEDS: LEVOTHYROXINE 50 MCG TABLET PO SCH (06:40)
[2020-01-08 06:58] LABS: Basophils % 0.4 % (0.0-0.8); Eosinophils # 0.3 10*3/uL (0.0-0.87); Eosinophils % 4.2 % (0.00-10.9); Hemoglobin 9.2 GM/DL (14.0-18.0); Immature Granulocytes % 0.4 %; Immature Granulocytes Absolute 0.03 #; Lymphocytes # 1.9 10*3/uL (1.4-4.0); Lymphocytes % 24.8 % (21.2-54.2); Mean Corpuscular HGB Conc 29.7 GM/DL (32-36); Mean Corpuscular Volume 85.6 FL (87-102); Mean Platelet Volume 10.3 FL (9.6-12.0); Monocytes % 6.4 % (1.7-12.7); Neutrophils % 63.8 % (38.7-73.9); Platelet Count 229 T/CUMM (130-400); Red Blood Count 3.62 MC/CUMM (3.8-5.5); Red Cell Distribution Width 16.9 % (9.3-17.3); White Blood Count 7.8 T/CUMM (4-12)
[2020-01-08 07:17] LABS: Calcium 8.5 MG/DL (8.5-10.1); Osmolality,Calculated 276.4 MOS/KG (273-304)
[2020-01-08] MEDS: CITALOPRAM 20 MG TABLET PO SCH (08:58)
[2020-01-08] MEDS: carvediloL 6.25 MG TABLET PO SCH (08:58)
[2020-01-08] MEDS: SODIUM HYPOCHLORITE 0.25% IRRIG 473 ML BOTTLE TOP SCH (09:23)
[2020-01-08] MEDS ORDERED: MAGNESIUM OXIDE 400 MG TABLET PO ONE (09:28)
[2020-01-08] MEDS: SODIUM CHLORIDE 0.9% 1,000 ML IV SCH (09:53)
[2020-01-08 12:26] VITALS: BP 188/93
== END 2020-01-08 12:52 | DRG 565 ==
LOC: EDBD → EDUNIT# → N.ED 19:37 → N.EDINP 23:32 → INTOOBSV 23:32 → N.3E 01-01 00:46 → SUATTDRO 01-01 13:20
PROVIDERS: ADMIT Internal Medicine; ATTEND Family Medicine

== ENCOUNTER 2020-03-10 10:08 | Inpatient (IN) ==
[2020-03-10 10:53] LABS: Basophils % 0.1 % (0.0-0.8); Eosinophils % 0.2 % (0.00-10.9); Hematocrit 33.5 VOL% (42.0-52.0); Immature Granulocytes Absolute 0.12 #; Lymphocytes # 0.9 10*3/uL (1.4-4.0); Lymphocytes % 7.4 % (21.2-54.2); Mean Corpuscular HGB Conc 32.8 GM/DL (32-36); Mean Corpuscular Volume 82.7 FL (87-102); Mean Platelet Volume 10.9 FL (9.6-12.0); Monocytes % 3.2 % (1.7-12.7); Neutrophils % 88.1 % (38.7-73.9); Platelet Count 217 T/CUMM (130-400); Red Blood Count 4.05 MC/CUMM (3.8-5.5); Red Cell Distribution Width 15.2 % (9.3-17.3); White Blood Count 12.3 T/CUMM (4-12)
[2020-03-10 11:02] LABS: INR 1.1; PT Patient Result 11.6 SECS (9.8-11.9)
[2020-03-10 11:12] LABS: Lymphocytes 2 % (20-55); Nucleated Red Blood Cells 1 (0-5); Platelet Estimate Adequate; Segmented Neutrophils 94 % (50-85); Total Cells Counted 100
[2020-03-10 11:16] LABS: Albumin 2.4 G/DL (3.4-5.0); Bilirubin,Total 0.6 MG/DL (0.2-1.0); Calcium 8.3 MG/DL (8.5-10.1); Ferritin 1334.8 ng/ml (26-388); Osmolality,Calculated 290.5 MOS/KG (273-304); Total Protein 7.5 G/DL (6.4-8.3)
[2020-03-10] MEDS ORDERED: ONDANSETRON 4 MG/2 ML VIAL IV PRN (13:28)
[2020-03-10] MEDS ORDERED: GLUCAGON 1 MG VIAL IM PRN (13:33)
[2020-03-10] MEDS ORDERED: DEXTROSE 50% 25 GM/50 ML VIAL IV PRN (13:33)
[2020-03-10] MEDS ORDERED: SODIUM CHLORIDE 0.9% 1,000 ML IV ONE (13:41)
[2020-03-10] MEDS: SODIUM CHLORIDE 0.9% 1,000 ML IV SCH (15:59)
[2020-03-10] MEDS: DEXAMETHASONE 10 MG/1 ML VIAL IV SCH (15:59)
[2020-03-10] MEDS: ENOXAPARIN 60 MG/0.6 ML SYRINGE SUBCUT SCH (15:59)
[2020-03-10] MEDS: INSULIN LISPRO 100 UNIT/ML SUBCUT SCH ×2 (16:00→20:53)
[2020-03-10] MEDS: PANTOPRAZOLE 40 MG VIAL IV SCH (16:00)
[2020-03-10 16:33] LABS: ABG Base Excess -4.9 MMOL/L (-2.5-2.5); ABG HCO3 20.3 MMOL/L (20-26); ABG Oxygen Saturation 93.1 % (95-100); ABG PCO2 29.2 MM HG (35-48); ABG PH 7.414 (7.35-7.45); ABG PO2 65.8 MM HG (80-95); Pt O2 Delivery Device Other
[2020-03-11] MEDS: SODIUM CHLORIDE 0.9% 1,000 ML IV SCH ×3 (01:59→21:59)
[2020-03-11] MEDS: NOREPINEPHRINE 8 MG in SODIUM CHLORIDE 0.9% 242 ML IV SCH ×2 (03:18→14:21)
[2020-03-11 05:54] LABS: Basophils % 0.2 % (0.0-0.8); Hematocrit 31.5 VOL% (42.0-52.0); Hemoglobin 10.2 GM/DL (14.0-18.0); Immature Granulocytes Absolute 0.06 #; Lymphocytes # 0.5 10*3/uL (1.4-4.0); Lymphocytes % 7.3 % (21.2-54.2); Mean Corpuscular HGB Conc 32.4 GM/DL (32-36); Mean Platelet Volume 10.8 FL (9.6-12.0); Monocytes % 2.4 % (1.7-12.7); Neutrophils % 89.1 % (38.7-73.9); Platelet Count 219 T/CUMM (130-400); Red Blood Count 3.75 MC/CUMM (3.8-5.5); Red Cell Distribution Width 15.1 % (9.3-17.3); White Blood Count 6.2 T/CUMM (4-12)
[2020-03-11 06:25] LABS: Hypochromasia Slight; Lymphocytes 5 % (20-55); Platelet Estimate Adequate; Segmented Neutrophils 91 % (50-85); Total Cells Counted 100
[2020-03-11 06:28] LABS: Albumin 2.1 G/DL (3.4-5.0); Calcium 8.6 MG/DL (8.5-10.1); Osmolality,Calculated 306.9 MOS/KG (273-304); Total Protein 7.5 G/DL (6.4-8.3)
[2020-03-11] MEDS: DEXAMETHASONE 10 MG/1 ML VIAL IV SCH (08:12)
[2020-03-11] MEDS: INSULIN LISPRO 100 UNIT/ML SUBCUT SCH ×4 (08:35→20:25)
[2020-03-11] MEDS ORDERED: DEXTROSE 50% 25 GM/50 ML VIAL IV PRN (11:19)
[2020-03-11] MEDS ORDERED: SODIUM CHLORIDE 0.9% 1,000 ML IV PRN (13:27)
[2020-03-11] MEDS: ENOXAPARIN 60 MG/0.6 ML SYRINGE SUBCUT SCH (14:24)
[2020-03-11] MEDS: PANTOPRAZOLE 40 MG VIAL IV SCH (15:01)
[2020-03-11] MEDS ORDERED: ACETAMINOPHEN 500 MG TABLET PO PRN (18:48)
[2020-03-11] MEDS ORDERED: LACTULOSE 20 GM/30 ML UDCUP PO PRN (18:48)
[2020-03-11] MEDS: carvediloL 6.25 MG TABLET PO SCH (20:20)
[2020-03-11] MEDS: ATORVASTATIN 40 MG TABLET PO SCH (20:47)
[2020-03-11] MEDS ORDERED: INSULIN GLARGINE 100 UNIT/ML SUBCUT SCH (21:00)
[2020-03-12 05:07] LABS: ABG HCO3 20.1 MMOL/L (20-26); ABG Oxygen Saturation 88.9 % (95-100); ABG PCO2 28.1 MM HG (35-48); ABG PH 7.422 (7.35-7.45); ABG PO2 55.2 MM HG (80-95); ABG TCO2 16.5 MMOL/L (23-27); Allen Test Positive; Pt O2 Delivery Device Other
[2020-03-12 05:22] LABS: Hematocrit 31.9 VOL% (42.0-52.0); Hemoglobin 10.3 GM/DL (14.0-18.0); Immature Granulocytes % 0.6 %; Immature Granulocytes Absolute 0.06 #; Lymphocytes # 0.4 10*3/uL (1.4-4.0); Lymphocytes % 3.8 % (21.2-54.2); Mean Corpuscular HGB Conc 32.3 GM/DL (32-36); Mean Corpuscular Volume 82.9 FL (87-102); Mean Platelet Volume 10.5 FL (9.6-12.0); Neutrophils % 91.6 % (38.7-73.9); Platelet Count 277 T/CUMM (130-400); Red Blood Count 3.85 MC/CUMM (3.8-5.5); Red Cell Distribution Width 15.1 % (9.3-17.3); White Blood Count 10.5 T/CUMM (4-12)
[2020-03-12 05:36] LABS: Calcium 7.9 MG/DL (8.5-10.1); Osmolality,Calculated 306.4 MOS/KG (273-304)
[2020-03-12 05:57] LABS: Band Neutrophils 1 % (0-10); Lymphocytes 7 % (20-55); Segmented Neutrophils 89 % (50-85); Total Cells Counted 100
[2020-03-12 05:58] LABS: Hypochromasia 1+; Microcytosis 1+; Ovalocytes Slight
[2020-03-12] MEDS: carvediloL 6.25 MG TABLET PO SCH ×2 (08:04→16:52)
[2020-03-12] MEDS: LEVOTHYROXINE 50 MCG TABLET PO SCH (08:04)
[2020-03-12] MEDS: CITALOPRAM 20 MG TABLET PO SCH (08:04)
[2020-03-12] MEDS: INSULIN LISPRO 100 UNIT/ML SUBCUT SCH ×4 (08:05→21:55)
[2020-03-12] MEDS: DEXAMETHASONE 10 MG/1 ML VIAL IV SCH (08:05)
[2020-03-12] MEDS: ASPIRIN EC 81 MG TABLET PO SCH (08:05)
[2020-03-12] MEDS: SODIUM CHLORIDE 0.9% 1,000 ML IV SCH ×2 (08:07→21:55)
[2020-03-12] MEDS: BUDESONIDE/FORMOTEROL 160-4.5 INHALER 6 GM INH SCH ×2 (09:53→21:55)
[2020-03-12] MEDS: PIPERACILLIN/TAZOBACTAM 3,375 MG in SODIUM CHLORIDE 0.9% 100 ML IV SCH ×2 (09:53→16:52)
[2020-03-12] MEDS: AZITHROMYCIN 250 MG TABLET PO SCH (09:53)
[2020-03-12] MEDS ORDERED: NIFEdipine 10 MG CAPSULE PO PRN (13:36)
[2020-03-12] MEDS: SPIRONOLACTONE 25 MG TABLET PO SCH (14:30)
[2020-03-12] MEDS: PANTOPRAZOLE 40 MG VIAL IV SCH (16:51)
[2020-03-12] MEDS: ENOXAPARIN 60 MG/0.6 ML SYRINGE SUBCUT SCH (16:51)
[2020-03-12] MEDS: ATORVASTATIN 40 MG TABLET PO SCH (21:55)
[2020-03-12] MEDS: INSULIN GLARGINE 100 UNIT/ML SUBCUT SCH (21:55)
[2020-03-13] MEDS: PIPERACILLIN/TAZOBACTAM 3,375 MG in SODIUM CHLORIDE 0.9% 100 ML IV SCH ×3 (01:01→16:53)
[2020-03-13 04:51] LABS: ABG Base Excess -4.1 MMOL/L (-2.5-2.5); ABG HCO3 19.3 MMOL/L (20-26); ABG Oxygen Saturation 88.5 % (95-100); ABG PCO2 29.7 MM HG (35-48); ABG PO2 56.4 MM HG (80-95); ABG TCO2 20.2 MMOL/L (23-27); Allen Test Positive; Pt O2 Delivery Device Other
[2020-03-13 05:04] LABS: Hematocrit 30.8 VOL% (42.0-52.0); Hemoglobin 10.2 GM/DL (14.0-18.0); Immature Granulocytes Absolute 0.11 #; Lymphocytes # 0.5 10*3/uL (1.4-4.0); Lymphocytes % 4.4 % (21.2-54.2); Mean Corpuscular HGB Conc 33.1 GM/DL (32-36); Mean Corpuscular Volume 80.4 FL (87-102); Mean Platelet Volume 9.9 FL (9.6-12.0); Monocytes % 3.9 % (1.7-12.7); Neutrophils % 90.7 % (38.7-73.9); Platelet Count 261 T/CUMM (130-400); Red Blood Count 3.83 MC/CUMM (3.8-5.5); Red Cell Distribution Width 15.2 % (9.3-17.3); White Blood Count 10.6 T/CUMM (4-12)
[2020-03-13 05:30] LABS: Calcium 8.6 MG/DL (8.5-10.1); Osmolality,Calculated 300.4 MOS/KG (273-304)
[2020-03-13 05:33] LABS: Hypochromasia 1+; Lymphocytes 1 % (20-55); Ovalocytes Slight; Platelet Estimate Adequate; Segmented Neutrophils 96 % (50-85); Total Cells Counted 100
[2020-03-13 05:34] LABS: Microcytosis 1+
[2020-03-13] MEDS: SODIUM CHLORIDE 0.9% 1,000 ML IV SCH ×2 (08:33→15:28)
[2020-03-13] MEDS: DEXAMETHASONE 10 MG/1 ML VIAL IV SCH (08:33)
[2020-03-13] MEDS: CITALOPRAM 20 MG TABLET PO SCH (08:34)
[2020-03-13] MEDS: LEVOTHYROXINE 50 MCG TABLET PO SCH (08:35)
[2020-03-13] MEDS: ASPIRIN EC 81 MG TABLET PO SCH (08:35)
[2020-03-13] MEDS: SPIRONOLACTONE 25 MG TABLET PO SCH (08:35)
[2020-03-13] MEDS: AZITHROMYCIN 250 MG TABLET PO SCH (08:35)
[2020-03-13] MEDS: INSULIN LISPRO 100 UNIT/ML SUBCUT SCH ×4 (08:35→21:00)
[2020-03-13] MEDS: carvediloL 6.25 MG TABLET PO SCH ×2 (08:39→16:53)
[2020-03-13] MEDS: BUDESONIDE/FORMOTEROL 160-4.5 INHALER 6 GM INH SCH ×2 (08:39→21:00)
[2020-03-13] MEDS ORDERED: LORazepam 2 MG/1 ML VIAL IV ONE ×2 (11:01→11:47)
[2020-03-13] MEDS ORDERED: diphenhydrAMINE 50 MG/1 ML VIAL IV ONE ×2 (11:47→13:03)
[2020-03-13] MEDS ORDERED: ZIPRASIDONE 20 MG/1 ML VIAL IM ONE (13:11)
[2020-03-13] MEDS: ENOXAPARIN 60 MG/0.6 ML SYRINGE SUBCUT SCH (16:53)
[2020-03-13] MEDS ORDERED: FUROSEMIDE 40 MG/4 ML VIAL IV ONE (18:05)
[2020-03-13] MEDS: ATORVASTATIN 40 MG TABLET PO SCH (21:00)
[2020-03-13] MEDS: INSULIN GLARGINE 100 UNIT/ML SUBCUT SCH (21:00)
[2020-03-13] MEDS: LORazepam 2 MG/1 ML VIAL IV PRN (22:39)
[2020-03-13 23:16] LABS: ABG HCO3 20.8 MMOL/L (20-26); ABG Oxygen Saturation 91.9 % (95-100); ABG PCO2 33.1 MM HG (35-48); ABG PH 7.417 (7.35-7.45); ABG PO2 65.4 MM HG (80-95); ABG TCO2 21.9 MMOL/L (23-27); Allen Test Positive; Pt O2 Delivery Device Other
[2020-03-14] MEDS: FUROSEMIDE 40 MG/4 ML VIAL IV SCH ×2 (00:05→09:13)
[2020-03-14] MEDS: PIPERACILLIN/TAZOBACTAM 3,375 MG in SODIUM CHLORIDE 0.9% 100 ML IV SCH ×3 (00:05→19:07)
[2020-03-14 03:33] LABS: Allen Test Positive; Pt O2 Delivery Device Other
[2020-03-14 03:35] LABS: ABG Base Excess -0.9 MMOL/L (-2.5-2.5); ABG HCO3 23.3 MMOL/L (20-26); ABG Oxygen Saturation 80.8 % (95-100); ABG PCO2 31.4 MM HG (35-48); ABG PH 7.457 (7.35-7.45); ABG PO2 45.1 MM HG (80-95); ABG TCO2 19.8 MMOL/L (23-27)
[2020-03-14 05:12] LABS: Eosinophils % 0.2 % (0.00-10.9); Hematocrit 34.3 VOL% (42.0-52.0); Hemoglobin 11.1 GM/DL (14.0-18.0); Immature Granulocytes % 0.9 %; Lymphocytes # 0.6 10*3/uL (1.4-4.0); Lymphocytes % 5.2 % (21.2-54.2); Mean Corpuscular HGB Conc 32.4 GM/DL (32-36); Mean Corpuscular Volume 82.7 FL (87-102); Mean Platelet Volume 9.9 FL (9.6-12.0); Monocytes % 2.8 % (1.7-12.7); Neutrophils % 90.9 % (38.7-73.9); Platelet Count 304 T/CUMM (130-400); Red Blood Count 4.15 MC/CUMM (3.8-5.5); Red Cell Distribution Width 15.2 % (9.3-17.3); White Blood Count 10.9 T/CUMM (4-12)
[2020-03-14 05:34] LABS: Osmolality,Calculated 301.1 MOS/KG (273-304)
[2020-03-14 05:53] LABS: Band Neutrophils 1 % (0-10); Lymphocytes 5 % (20-55); Platelet Estimate Normal; Segmented Neutrophils 92 % (50-85); Total Cells Counted 100
[2020-03-14] MEDS: INSULIN LISPRO 100 UNIT/ML SUBCUT SCH ×4 (08:06→22:11)
[2020-03-14] MEDS ORDERED: FUROSEMIDE 40 MG/4 ML VIAL IV SCH (09:00)
[2020-03-14] MEDS: AZITHROMYCIN 250 MG TABLET PO SCH (09:12)
[2020-03-14] MEDS: CITALOPRAM 20 MG TABLET PO SCH (09:12)
[2020-03-14] MEDS: LEVOTHYROXINE 50 MCG TABLET PO SCH (09:12)
[2020-03-14] MEDS: ASPIRIN EC 81 MG TABLET PO SCH (09:13)
[2020-03-14] MEDS: SPIRONOLACTONE 25 MG TABLET PO SCH (09:13)
[2020-03-14] MEDS: DEXAMETHASONE 10 MG/1 ML VIAL IV SCH (09:14)
[2020-03-14] MEDS: LORazepam 2 MG/1 ML VIAL IV PRN ×2 (09:14→21:35)
[2020-03-14] MEDS: carvediloL 6.25 MG TABLET PO SCH ×2 (09:14→19:07)
[2020-03-14] MEDS: ENOXAPARIN 60 MG/0.6 ML SYRINGE SUBCUT SCH ×2 (09:14→22:12)
[2020-03-14] MEDS: BUDESONIDE/FORMOTEROL 160-4.5 INHALER 6 GM INH SCH ×2 (09:15→22:12)
[2020-03-14] MEDS: FUROSEMIDE 100 MG/10 ML VIAL IV SCH ×2 (11:51→19:07)
[2020-03-14] MEDS ORDERED: REMDESIVIR 200 MG in SODIUM CHLORIDE 0.9% 210 ML IV ONE (12:00)
[2020-03-14] MEDS: HALOPERIDOL 5 MG/ML AMP IM PRN (15:53)
[2020-03-14] MEDS: DEXAMETHASONE 4 MG/1 ML VIAL IV SCH (21:35)
[2020-03-14] MEDS: INSULIN GLARGINE 100 UNIT/ML SUBCUT SCH (22:11)
[2020-03-14] MEDS: POTASSIUM CHLORIDE 20 MEQ TABLET PO SCH (22:11)
[2020-03-14] MEDS: ATORVASTATIN 40 MG TABLET PO SCH (22:11)
[2020-03-15] MEDS: PIPERACILLIN/TAZOBACTAM 3,375 MG in SODIUM CHLORIDE 0.9% 100 ML IV SCH ×3 (00:51→16:24)
[2020-03-15] MEDS: FUROSEMIDE 100 MG/10 ML VIAL IV SCH ×3 (00:51→16:23)
[2020-03-15] MEDS: HALOPERIDOL 5 MG/ML AMP IM PRN ×3 (02:23→20:21)
[2020-03-15] MEDS: LORazepam 2 MG/1 ML VIAL IV PRN ×2 (04:53→16:24)
[2020-03-15] MEDS: hydrALAZINE 20 MG/1 ML VIAL IV PRN ×3 (06:09→23:15)
[2020-03-15 06:25] LABS: Basophils % 0.1 % (0.0-0.8); Eosinophils % 0.1 % (0.00-10.9); Hematocrit 39.4 VOL% (42.0-52.0); Hemoglobin 12.8 GM/DL (14.0-18.0); Immature Granulocytes % 0.7 %; Immature Granulocytes Absolute 0.07 #; Lymphocytes # 0.4 10*3/uL (1.4-4.0); Lymphocytes % 3.9 % (21.2-54.2); Mean Corpuscular HGB Conc 32.5 GM/DL (32-36); Mean Corpuscular Volume 82.3 FL (87-102); Mean Platelet Volume 9.9 FL (9.6-12.0); Neutrophils % 92.2 % (38.7-73.9); Platelet Count 366 T/CUMM (130-400); Red Blood Count 4.79 MC/CUMM (3.8-5.5); Red Cell Distribution Width 15.5 % (9.3-17.3); White Blood Count 9.8 T/CUMM (4-12)
[2020-03-15 06:47] LABS: Albumin 2.6 G/DL (3.4-5.0); Bilirubin,Total 0.9 MG/DL (0.2-1.0); Calcium 9.6 MG/DL (8.5-10.1); Osmolality,Calculated 318.3 MOS/KG (273-304); Total Protein 8.5 G/DL (6.4-8.3)
[2020-03-15 06:49] LABS: Hypochromasia 1+; Lymphocytes 4 % (20-55); Microcytosis 1+; Ovalocytes Slight; Segmented Neutrophils 93 % (50-85); Total Cells Counted 100
[2020-03-15 06:57] LABS: Ferritin 664.3 ng/ml (26-388)
[2020-03-15] MEDS ORDERED: MORPHINE 4 MG/1 ML VIAL IV ONE (07:11)
[2020-03-15] MEDS: ENOXAPARIN 60 MG/0.6 ML SYRINGE SUBCUT SCH ×2 (08:01→20:29)
[2020-03-15] MEDS: AZITHROMYCIN 250 MG TABLET PO SCH ×2 (08:01→09:32)
[2020-03-15] MEDS: carvediloL 6.25 MG TABLET PO SCH ×3 (08:02→17:10)
[2020-03-15] MEDS: DEXAMETHASONE 4 MG/1 ML VIAL IV SCH ×3 (08:02→20:16)
[2020-03-15] MEDS: LEVOTHYROXINE 50 MCG TABLET PO SCH (08:02)
[2020-03-15] MEDS: ASPIRIN EC 81 MG TABLET PO SCH ×2 (08:02→09:32)
[2020-03-15] MEDS: INSULIN LISPRO 100 UNIT/ML SUBCUT SCH ×4 (09:27→20:20)
[2020-03-15] MEDS: POTASSIUM CHLORIDE 20 MEQ TABLET PO SCH (09:30)
[2020-03-15] MEDS: BUDESONIDE/FORMOTEROL 160-4.5 INHALER 6 GM INH SCH ×2 (09:30→20:30)
[2020-03-15] MEDS: REMDESIVIR 100 MG in SODIUM CHLORIDE 0.9% 230 ML IV SCH (11:50)
[2020-03-15] MEDS ORDERED: cloNIDine 0.3 MG/24 HR PATCH TRANSDERM SCH (16:30)
[2020-03-15] MEDS: INSULIN GLARGINE 100 UNIT/ML SUBCUT SCH (20:21)
[2020-03-15] MEDS: ATORVASTATIN 40 MG TABLET PO SCH (20:29)
[2020-03-16] MEDS: PIPERACILLIN/TAZOBACTAM 3,375 MG in SODIUM CHLORIDE 0.9% 100 ML IV SCH ×3 (00:28→16:43)
[2020-03-16] MEDS: LORazepam 2 MG/1 ML VIAL IV PRN (01:59)
[2020-03-16 05:36] LABS: Basophils % 0.1 % (0.0-0.8); Eosinophils % 0.2 % (0.00-10.9); Hematocrit 43.1 VOL% (42.0-52.0); Hemoglobin 13.4 GM/DL (14.0-18.0); Immature Granulocytes % 0.6 %; Immature Granulocytes Absolute 0.06 #; Lymphocytes # 0.6 10*3/uL (1.4-4.0); Lymphocytes % 5.8 % (21.2-54.2); Mean Corpuscular HGB Conc 31.1 GM/DL (32-36); Mean Platelet Volume 10.1 FL (9.6-12.0); Monocytes % 2.8 % (1.7-12.7); Neutrophils % 90.5 % (38.7-73.9); Platelet Count 392 T/CUMM (130-400); Red Blood Count 5.07 MC/CUMM (3.8-5.5); Red Cell Distribution Width 16.2 % (9.3-17.3); White Blood Count 10.4 T/CUMM (4-12)
[2020-03-16 05:58] LABS: Albumin 2.5 G/DL (3.4-5.0); Bilirubin,Total 0.5 MG/DL (0.2-1.0); Calcium 9.2 MG/DL (8.5-10.1); Osmolality,Calculated 336.2 MOS/KG (273-304); Total Protein 8.2 G/DL (6.4-8.3)
[2020-03-16 06:13] LABS: Ferritin 584.4 ng/ml (26-388)
[2020-03-16] MEDS: INSULIN LISPRO 100 UNIT/ML SUBCUT SCH ×4 (08:33→20:24)
[2020-03-16] MEDS: carvediloL 6.25 MG TABLET PO SCH (08:45)
[2020-03-16] MEDS: ASPIRIN EC 81 MG TABLET PO SCH (08:45)
[2020-03-16] MEDS: AZITHROMYCIN 250 MG TABLET PO SCH (08:45)
[2020-03-16] MEDS: LEVOTHYROXINE 50 MCG TABLET PO SCH (08:45)
[2020-03-16] MEDS: BUDESONIDE/FORMOTEROL 160-4.5 INHALER 6 GM INH SCH ×2 (08:45→20:24)
[2020-03-16] MEDS ORDERED: POTASSIUM CHLORIDE 20 MEQ TABLET PO ONE (08:56)
[2020-03-16] MEDS ORDERED: FUROSEMIDE 100 MG/10 ML VIAL IV SCH (09:00)
[2020-03-16] MEDS ORDERED: POTASSIUM CHLORIDE 20 MEQ TABLET PO SCH (09:00)
[2020-03-16] MEDS: ENOXAPARIN 60 MG/0.6 ML SYRINGE SUBCUT SCH ×2 (11:49→20:07)
[2020-03-16] MEDS: DEXAMETHASONE 4 MG/1 ML VIAL IV SCH ×2 (11:50→20:08)
[2020-03-16] MEDS: REMDESIVIR 100 MG in SODIUM CHLORIDE 0.9% 230 ML IV SCH (11:53)
[2020-03-16] MEDS ORDERED: ACETAMINOPHEN 325 MG/10.15 ML UDCUP PO PRN (16:49)
[2020-03-16] MEDS: ACETAMINOPHEN 650 MG SUPP RECTAL PRN ×2 (16:50→20:55)
[2020-03-16] MEDS ORDERED: DEXT 5% NACL 0.45% KCL 20 MEQ 20 MEQ/1,000 ML BAG IV SCH (18:30)
[2020-03-16] MEDS: INSULIN GLARGINE 100 UNIT/ML SUBCUT SCH (20:09)
[2020-03-17] MEDS: PIPERACILLIN/TAZOBACTAM 3,375 MG in SODIUM CHLORIDE 0.9% 100 ML IV SCH ×2 (00:51→08:33)
[2020-03-17] MEDS: ACETAMINOPHEN 650 MG SUPP RECTAL PRN ×3 (00:51→22:15)
[2020-03-17 05:54] LABS: Albumin 2.5 G/DL (3.4-5.0); Bilirubin,Total 0.4 MG/DL (0.2-1.0); Calcium 9.1 MG/DL (8.5-10.1); Osmolality,Calculated 353.5 MOS/KG (273-304); Total Protein 7.8 G/DL (6.4-8.3)
[2020-03-17 06:25] LABS: Ferritin 616.4 ng/ml (26-388)
[2020-03-17 06:56] LABS: Basophils % 0.2 % (0.0-0.8); Eosinophils # 0.1 10*3/uL (0.0-0.87); Eosinophils % 0.4 % (0.00-10.9); Hematocrit 45.1 VOL% (42.0-52.0); Hemoglobin 13.7 GM/DL (14.0-18.0); Immature Granulocytes % 0.7 %; Immature Granulocytes Absolute 0.08 #; Lymphocytes % 8.9 % (21.2-54.2); Mean Corpuscular HGB Conc 30.4 GM/DL (32-36); Mean Corpuscular Volume 87.9 FL (87-102); Mean Platelet Volume 10.6 FL (9.6-12.0); Monocytes % 5.2 % (1.7-12.7); Neutrophils % 84.6 % (38.7-73.9); Platelet Count 331 T/CUMM (130-400); Red Blood Count 5.13 MC/CUMM (3.8-5.5); Red Cell Distribution Width 16.6 % (9.3-17.3); White Blood Count 11.6 T/CUMM (4-12)
[2020-03-17] MEDS: INSULIN LISPRO 100 UNIT/ML SUBCUT SCH ×4 (08:32→20:51)
[2020-03-17] MEDS: HEPARIN 5,000 UNIT/1 ML VIAL SUBCUT SCH ×2 (08:33→16:14)
[2020-03-17] MEDS: BUDESONIDE/FORMOTEROL 160-4.5 INHALER 6 GM INH SCH ×2 (08:33→21:21)
[2020-03-17] MEDS: DEXTROSE 5% 1,000 ML IV SCH ×2 (09:09→16:49)
[2020-03-17] MEDS: REMDESIVIR 100 MG in SODIUM CHLORIDE 0.9% 230 ML IV SCH (13:14)
[2020-03-17] MEDS: INSULIN GLARGINE 100 UNIT/ML SUBCUT SCH (20:50)
[2020-03-18] MEDS: HEPARIN 5,000 UNIT/1 ML VIAL SUBCUT SCH ×3 (01:20→17:02)
[2020-03-18] MEDS: DEXTROSE 5% 1,000 ML IV SCH ×3 (01:20→20:22)
[2020-03-18] MEDS: ACETAMINOPHEN 650 MG SUPP RECTAL PRN ×2 (05:01→17:33)
[2020-03-18 06:45] LABS: Albumin 2.4 G/DL (3.4-5.0); Bilirubin,Total 0.6 MG/DL (0.2-1.0); Calcium 8.7 MG/DL (8.5-10.1); Osmolality,Calculated 348.9 MOS/KG (273-304); Total Protein 7.4 G/DL (6.4-8.3)
[2020-03-18 06:51] LABS: Ferritin 810.4 ng/ml (26-388)
[2020-03-18 07:12] LABS: Basophils % 0.2 % (0.0-0.8); Eosinophils # 0.6 10*3/uL (0.0-0.87); Eosinophils % 3.4 % (0.00-10.9); Hematocrit 42.6 VOL% (42.0-52.0); Immature Granulocytes % 0.4 %; Immature Granulocytes Absolute 0.07 #; Lymphocytes # 1.8 10*3/uL (1.4-4.0); Lymphocytes % 10.7 % (21.2-54.2); Mean Corpuscular HGB Conc 29.3 GM/DL (32-36); Mean Corpuscular Volume 90.3 FL (87-102); Mean Platelet Volume 11.5 FL (9.6-12.0); Neutrophils % 80.3 % (38.7-73.9); Platelet Count 257 T/CUMM (130-400); Red Blood Count 4.72 MC/CUMM (3.8-5.5); Red Cell Distribution Width 16.6 % (9.3-17.3); White Blood Count 16.7 T/CUMM (4-12)
[2020-03-18 07:14] LABS: Hemoglobin 12.5 GM/DL (14.0-18.0)
[2020-03-18] MEDS: INSULIN LISPRO 100 UNIT/ML SUBCUT SCH ×4 (08:38→20:16)
[2020-03-18] MEDS: BUDESONIDE/FORMOTEROL 160-4.5 INHALER 6 GM INH SCH ×2 (08:43→20:21)
[2020-03-18] MEDS: REMDESIVIR 100 MG in SODIUM CHLORIDE 0.9% 230 ML IV SCH (12:20)
[2020-03-18] MEDS ORDERED: MORPHINE 4 MG/1 ML VIAL IV PRN (14:08)
[2020-03-18] MEDS ORDERED: PIPERACILLIN/TAZOBACTAM 3,375 MG in SODIUM CHLORIDE 0.9% 100 ML IV SCH (15:00)
[2020-03-18] MEDS ORDERED: fentaNYL 12 MCG/HR PATCH TRANSDERM SCH (15:00)
[2020-03-18] MEDS: INSULIN GLARGINE 100 UNIT/ML SUBCUT SCH (20:16)
[2020-03-18 22:29] VITALS: BP 77/59
[2020-03-20] MEDS ORDERED: LEVOTHYROXINE 100 MCG VIAL IV SCH (09:00)
== END 2020-03-18 23:40 | disposition expired | DRG 177 ==
LOC: EDUNIT# → EDBD → N.ED 10:08 → SUATTDRO 15:01 → N.CC 15:01 → N.2E 03-12 11:24
PROVIDERS: ADMIT Family Medicine; ATTEND Internal Medicine